=== PATIENT | female | born 1980 | race Caucasian/White ===

== ENCOUNTER 2019-02-03 20:01 | Emergency (ER) | payer SELFPAY ==
[2019-02-03 20:01] VITALS: BP 126/69; PULSE 84; RESP 15; TEMP 36.3; BMI 30.1
--- NOTE | 2019-02-03 22:21 | ED.VIS.GEN ---
History of Present Illness Chief Complaint: Dental Informant: Patient Onset: Today Context: Gradual Onset Timing: Continuous Quality: ache Location: left mandiublar Current Severity: Moderate Maximum Severity: Severe Worsened by: palpation, chewing Relieved by: spontaneously rupturing and draining some foul-tasting discharge into mouth Associated Symptoms: no fevers/systemic sx Narrative: Patient states 10 days ago this tooth swelled and was sore like this but spontaneously improved. Got worse today, and while at work felt some pus in her mouth after something popped in the area of the swelling, her boss wanted her to have it evaluated [facility]. Past Medical History - Allergies and Home Meds Allergies/Adverse Reactions: Allergies amoxicillin [From Augmentin] Adverse Reaction (Verified 02/03/19 20:05) Vomiting clavulanic acid [From Augmentin] Adverse Reaction (Verified 02/03/19 20:05) Vomiting ANTIBIOTIC Adverse Reaction (Uncoded 09/04/17 18:02) Vomiting UNKNOWN NAME OF ANTIBIOTIC. IT IS A STRONG ONE Primary Care Physician: Care Physician,No Primary [Primary Care Provider] - Smoking Status: Current every day smoker Review of Systems General: Denies: Chills, Fever ENT: Reports: - - dental pain/facial swelling. Denies: Rhinorrhea, Sore throat Physical Exam Vital Signs/Narrative: Vital Signs Temp Pulse Resp BP 02/03/19 20:01 97.4 F L 84 15 126/69 H Inital Vital Signs reviewed: Yes General: Well nourished, Well developed, No Acute Distress Head: Normocephalic, Atraumatic Eyes: Perrl, EOMI ENT: Moist mucous membranes, No rhinorrhea, - - Focal dental tenderness tooth #20. It is obviously decayed. There is no active discharge. The gingiva is normal and not bleeding or hypertrophy. There is a very tender area of swelling just lateral to this in the soft tissues of the mandible which is evident externally, there is no fluctuance.. Negative for: Sinus tenderness Neck: Supple, Nontender, No lymphadenopathy Skin: Normal color, No rash, No Trauma Neurological: Alert, Oriented x3, Cranial nerves II-XII grossly intact, Normal Strength, Normal Sensation, Normal Gait Psychological: Normal affect, Normal Mood Diagnostic/Tx/Re-eval - Medical Decision Making Consistent with an early dental abscess. Will be placed on clindamycin, and Naprosyn. She wants first doses here, does not want any narcotics I think that is reasonable, needs dental follow-up. ED Disposition - Plan for ED Patient: Disposition: Home or Assisted Living Diagnosis: Dental abscess, Dental caries Instructions: Dental Abscess Prescriptions: Naproxen [Naprosyn] 500 mg PO BID PRN #20 tab Clindamycin [Cleocin] 300 mg PO 4X/DAY #80 cap Referrals: Care Physician,No Primary [Primary Care Provider] - Dentist,Your [STAFF PHYSICIAN] - As soon as possible (see attached list)
[2019-02-03] MEDS: Clindamycin HCl 150 MG Capsule 300 MG PO (22:28)
[2019-02-03] MEDS: Naproxen 500 MG Tablet PO (22:28)
[2019-02-03 22:29] VITALS: TEMP -8.8; TEMP 16
== END 2019-02-03 22:33 | disposition home or self-care (01) ==
PROVIDERS: Emergency Provider Emergency Medicine
DX: K04.7 Periapical abscess without sinus (principal); K02.9 Dental caries, unspecified; F17.200 Nicotine dependence, unspecified, uncomplicated
CPT/HCPCS: 99283

== ENCOUNTER 2020-04-10 14:59 | Emergency (ER) | payer MEDICAID, SELFPAY ==
[2020-04-10 15:00] VITALS: BP 130/83; PULSE 74; RESP 18; TEMP 36.7; O2SAT 100; BMI 28.2
--- NOTE | 2020-04-10 15:41 | ED.VIS.FLU ---
History of Present Illness Chief Complaint: Asthma Informant: Patient Narrative: Patient presenting for evaluation secondary to an asthma exacerbation. Patient has a underlying history of mild intermittent asthma, typically uses a MDI inhaler. Over the course of the last couple of days she states that she has had increased use of her MDI inhaler, and increased wheezes. She does report that she has cough. This is minimally productive of mucus in the morning. Patient reports that she has some rhinitis associated with the weather. She denies any fevers. She denies any chest pain. No nausea vomiting or diarrhea associated with this. No sick contacts. Patient reports that she did a [employer] visit this morning, and they told her that she needed to come to the emergency department. Past Medical History - Allergies and Home Meds Allergies/Adverse Reactions: Allergies amoxicillin [From Augmentin] Adverse Reaction (Verified 04/10/20 15:02) Vomiting clavulanic acid [From Augmentin] Adverse Reaction (Verified 04/10/20 15:02) Vomiting ANTIBIOTIC Adverse Reaction (Uncoded 04/10/20 15:02) Vomiting UNKNOWN NAME OF ANTIBIOTIC. IT IS A STRONG ONE Primary Care Physician: Care Physician,No Primary [Primary Care Provider] - Prior records reviewed: Yes Past Medical History: - - Asthma Smoking Status: Current every day smoker Alcohol: None Drugs: None Review of Systems All systems negative except as indicated General: Denies: Chills, Fever, Sweats Cardiovascular: Denies: Chest pain, Palpitations Respiratory: Reports: Dyspnea, Cough Gastrointestinal: Denies: Abdominal pain, Nausea, Vomiting, Diarrhea, Melena, Hematochezia Genitourinary: Denies: Dysuria, Hematuria, Frequency Skin: Denies: Rash Neurological: Denies: Headache, Weakness, Numbness Physical Exam Vital Signs/Narrative: Vital Signs Temp Pulse Resp BP Pulse Ox 04/10/20 15:00 98.1 F 74 18 130/83 H 100 Inital Vital Signs reviewed: Yes General: Well nourished, Well developed Head: Normocephalic, Atraumatic Eyes: Perrl, EOMI Neck: Supple, Nontender Cardiovascular: Regular rate, Regular rhythm, No murmurs Abdomen: Soft, Nontender, Nondistended, Normal bowel sounds Back: Nontender, Normal Inspection Extremities: Nontender, No edema Skin: Normal color, No rash Neurological: Alert, Oriented x3, Cranial nerves II-XII grossly intact, Normal Strength, Normal Sensation Psychological: Normal affect Diagnostic/Tx/Re-eval - Medical Decision Making Patient presenting secondary to complaints of wheezing. On physical exam she actually was not having any abnormal lung sounds, is oxygenating normally. Patient likely is suffering from a mild asthma exacerbation secondary to the extreme heat currently. I will place the patient on a prednisone burst. She reports that she has enough of her inhalers, she does not require refill. Patient was discharged in stable condition. ED Disposition - Plan for ED Patient: Disposition: Home or Assisted Living Diagnosis: Asthma exacerbation Instructions: ED REACTIVE AIRWAY DISEASE Adult Prescriptions: Prednisone [Deltasone] 40 mg PO DAILY #10 tab Prescription Printed Referrals: Moustapha Infante MD [STAFF PHYSICIAN] - 1 Week if not improving
[2020-04-10 15:54] VITALS: RESP 18
== END 2020-04-10 15:54 | disposition home or self-care (01) ==
PROVIDERS: Emergency Provider Emergency Medicine
DX: J45.20 Mild intermittent asthma, uncomplicated (principal); F17.200 Nicotine dependence, unspecified, uncomplicated
CPT/HCPCS: 99282

== ENCOUNTER 2020-05-11 17:42 | Emergency (ER) | payer MEDICAID, SELFPAY ==
[2020-05-11 17:43] VITALS: BP 135/84; PULSE 82; RESP 15; TEMP 37.2; O2SAT 96; BMI 29.5
--- NOTE | 2020-05-11 17:57 | ED.VISSUMM ---
- ER Visit Summary Date of Service: 05/11/20 Chief Complaint: [Dental pain] History of Present Illness: The patient is a 39 F [presents to the emergency department with complaint of dental pain that started yesterday. Patient describes swelling that began this morning to the left lower jaw. She denies any fever. She denies any trauma to her teeth. Patient states that she does have a broken and carried tooth. Patient felt like she needed an antibiotic. Patient states that she will try to see a dentist in [facility].] Physical Examination: HEENT-PERRLA, EOMI. Cranial nerves II through XII grossly intact. TMs clear. Mucous membranes moist. No adenopathy. Dentition-patient has a broken and carried left lower premolar that is tender to palpation with gingival erythema and soft tissue swelling noted. There is no fluctuance or discrete abscess noted. No facial erythema or cellulitis noted. Cardiovascular-regular rate and rhythm without murmur or ectopy Lungs-clear to auscultation, chest wall stable without crepitus or subcu emphysema Abdomen-normoactive bowel sounds, soft, nontender, no rebound or rigidity, no peritoneal signs. Extremities-intact ?4, normal range of motion, normal pulses, atraumatic [] Test Results: [None indicated] Emergency Department Course and Treatment: She was given clindamycin 300 mg p.o. I do not feel that there is any indication for incision and drainage as I suspect she just has more inflammation at this time given that the swelling just started today. [] Treatment Plan: [Chin will be referred to dentist for follow-up. Patient will be started on clindamycin and given a few Roark for pain.] Disposition: [Discharged home in stable condition] Impression: [Dental pain secondary to dental caries Early dental abscess] This note was generated with [employer] dictation software. It may contain incorrect words, spelling, and punctuation that were not noted in review of the chart prior to signing ED Disposition - Plan for ED Patient: Referrals: Care Physician,No Primary [Primary Care Provider] -
--- NOTE | 2020-05-11 17:59 | ED.DEP ---
ED Disposition - Plan for ED Patient: Instructions: ED Tooth Pain, ED ABSCESS DENTAL Prescriptions: Clindamycin HCl [Cleocin] 300 mg PO Q6H #40 cap Prescription Printed Hydrocodone Bitart/Apap 5-325 [[place] 5MG-325MG] 1 tab PO Q4H PRN PRN 2 Days #10 tab PRN Reason: Pain Prescription Printed Referrals: Care Physician,No Primary [Primary Care Provider] - Additional Instructions: see a dentist
[2020-05-11] MEDS: Clindamycin HCl 150 MG Capsule 300 MG PO (18:06)
== END 2020-05-11 18:13 | disposition home or self-care (01) ==
LOC: ED 18:04
PROVIDERS: Emergency Provider Emergency Medicine
DX: K04.7 Periapical abscess without sinus (principal); K02.9 Dental caries, unspecified; J45.909 Unspecified asthma, uncomplicated; Z72.0 Tobacco use
CPT/HCPCS: 99283

== ENCOUNTER → 2020-07-10 18:00 | Outpatient (CLI) | payer OTHER, MEDICAID, SELFPAY | PROVIDERS: PCP Family Medicine; Referring Provider Registered Nurse; Visit Provider Registered Nurse | DX: Z20.828 Contact with and (suspected) exposure to other viral communicable diseases (principal) | CPT/HCPCS: 87635; C9803; U0003 ==

== ENCOUNTER 2020-07-15 07:13 | Emergency (ER) | payer OTHER, MEDICAID, SELFPAY ==
[2020-07-15 07:14] VITALS: BP 149/94; PULSE 89; RESP 24; TEMP 36.4; O2SAT 100; BMI 28.2
[2020-07-15 07:22] VITALS: O2SAT 100
--- NOTE | 2020-07-15 07:31 | RAD_ITS ---
STUDY: X-RAY CHEST REASON FOR EXAM: Female, 40 years old. SOB, COUGH X 1 WEEK, negative COVID test , h/o asthma and bronchitis TECHNIQUE: Single AP portable view of the chest. COMPARISON: Comparison is made with prior study dated 09/04/2017. FINDINGS: The lungs are clear and expanded. There is no demonstrated pleural abnormality. Normal size heart. Normal mediastinum and chidi. Normal visualized pulmonary arteries. Normal visualized aortic arch and descending thoracic aorta. Normal visualized thoracic spine. Normal visualized ribs, clavicles, and shoulders. There is no demonstrated abnormality of the visualized soft tissue structures of the upper abdomen. RAD/Chest 1 View (Portable) IMPRESSION: Normal x-ray examination of the chest. Electronically Signed: Franki Parkinson, at 8:33 EDT , Service support ,
--- NOTE | 2020-07-15 07:32 | ED.VIS.DYS ---
History of Present Illness Chief Complaint: Shortness of Breath Informant: Patient Onset: Weeks - 1 Activity at onset: - - gradual Timing: Waxes and wanes Quality: Wheezing Current Severity: Moderate Maximum Severity: Severe Worsened by: Coughing, Exertion Relieved by: Rest. Not Relieved By: Albuterol - tried rescue inhaler this AM Associated Symptoms: Cough, Fever - low grade last week, Rhinorrhea. Negative for: Bloody Sputum, Clear sputum, Sore throat, Sweats Chest Pain: None Narrative: Patient with a history of asthma, feels like it has been flared up in the last week since she has had an upper respiratory infection, with nonproductive cough, bronchospasm, rhinorrhea, congestion. She admits to having some headaches and myalgias earlier in the illness, not so much now. She was having asthma symptoms with dyspnea at the beginning of the illness, she had a COVID-19 test that returned negative. 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 She states now that she is here to the hospital she is improved somewhat although the albuterol inhaler did not seem to help at the time she used it. She denies any other new symptoms. - Past Medical History (1) Asthma Status: Chronic Past Medical History - Allergies and Home Meds Allergies/Adverse Reactions: Allergies amoxicillin [From Augmentin] Adverse Reaction (Verified 07/15/20 07:13) Vomiting clavulanic acid [From Augmentin] Adverse Reaction (Verified 07/15/20 07:13) Vomiting Primary Care Physician: Ajit Nayak MD [Primary Care Provider] - Smoking Status: Current every day smoker Review of Systems General: Denies: Chills, Fever, Sweats Eyes: Denies: Visual changes - bilaterally, Diplopia ENT: Reports: Rhinorrhea. Denies: Bilateral ear pain, Sore throat Cardiovascular: Denies: Chest pain, Palpitations Respiratory: Reports: Dyspnea, Cough, Dyspnea on exertion. Denies: Sputum, Orthopnea Gastrointestinal: Reports: Vomiting - posttussive only, Diarrhea. Denies: Abdominal pain, Nausea, Melena, Hematochezia Genitourinary: Denies: Dysuria, Hematuria, Frequency Musculoskeletal: Reports: Myalgias - resolved. Denies: Back pain, Swelling, Extremity Pain Skin: Denies: Rash, Wounds Neurological: Denies: Headache, Weakness, Numbness Physical Exam Vital Signs/Narrative: Vital Signs Temp Pulse Resp BP Pulse Ox 07/15/20 07:14 97.5 F L 89 24 H 149/94 H 100 Inital Vital Signs reviewed: Yes General: Well nourished, Well developed, No Acute Distress - speaking in full sentences Head: Normocephalic, Atraumatic Eyes: Perrl, EOMI ENT: Moist mucous membranes, No rhinorrhea Neck: Supple, Nontender, No lymphadenopathy Cardiovascular: Regular rate, Regular rhythm, No murmurs. Negative for: Tachycardia Respiratory: No distress, Chest nontender, Wheezing. Negative for: Rales, Rhonchi Abdomen: Soft, Nontender, Nondistended, Normal bowel sounds Back: Nontender, Normal Inspection Extremities: Nontender, No edema. Negative for: Calf Tenderness Skin: Normal color, No rash, No Trauma Neurological: Alert, Oriented x3, Cranial nerves II-XII grossly intact, Normal Strength, Normal Sensation Psychological: Normal affect, Normal Mood Diagnostic/Tx/Re-eval Chest X-Ray - ED: 1 View, Read by ED Physician, Normal, Heart, Lungs, Mediastinum, Bony Structures, No Acute Disease Treatment - Dyspnea: Albuterol, Atrovent, Steroid Repeat Evaluation: Improved - Medical Decision Making Patient improved after an aerosol. Treated with steroids, x-ray is unremarkable showing no pneumonia, and that her illness is consistent with a viral syndrome. I do not think she needs another COVID-19 test at this time. No antibiotics indicated at this time. Will prescribe her prednisone and offer a work note for the day. ED Disposition - Plan for ED Patient: Disposition: Home or Assisted Living Diagnosis: Acute asthmatic bronchitis Instructions: ED Bronchitis Asthmatic Prescriptions: Prednisone [Deltasone] 40 mg PO DAILY #10 tab Transmission Status: Pending to [id number] [facility] Referrals: Ajit Nayak MD [Primary Care Provider] - 3-5 Days if not improving
[2020-07-15] MEDS: predniSONE 20 MG Tablet 40 MG PO (07:37)
[2020-07-15 07:59] VITALS: PULSE 72; RESP 20
[2020-07-15] MEDS: Ipratropium/Albuterol Sulfate 3 ML AMPUL.NEB INHALATION (07:59)
[2020-07-15 09:47] VITALS: RESP 18; O2SAT 98
== END 2020-07-15 09:47 | disposition home or self-care (01) ==
PROVIDERS: Emergency Provider Emergency Medicine; PCP Family Medicine
DX: J45.901 Unspecified asthma with (acute) exacerbation (principal); F17.200 Nicotine dependence, unspecified, uncomplicated
CPT/HCPCS: 71045; 94640; 99281

== ENCOUNTER 2021-03-14 13:43 | Emergency (ER) | payer MEDICAID, SELFPAY ==
[2021-03-14 13:44] VITALS: BP 128/77; PULSE 63; RESP 16; TEMP 36.5; O2SAT 99; BMI 28.6
--- NOTE | 2021-03-14 14:00 | EX.ED.GENINJ ---
HPI History of Present Illness Chief Complaint: Laceration Informant: patient Narrative Narrative: Patient is a 40-year-old previously healthy female who presents to the emergency department for laceration to dorsal right hand. It is over her fifth knuckle. She states that she went to clean a glass whenever it broke. Bleeding has been controlled prior to arrival in the ED. She is not a blood thinning medications. No loss of sensation in the finger or weakness. She denies any other injury. She believes her last tetanus shot was 6 or 7 years ago. She denies any other injury. [facility] Medical History (Updated 03/14/21 @ 14:[address] Paddy Barone DO) Asthma Home Medications albuterol sulfate 2 puff INHALATION Q4H PRN PRN 04/10/20 [History Last Taken Unknown] mometasone-formoterol 2 puff IH BID 05/11/20 [History Last Taken Unknown] prednisone 40 mg PO DAILY #10 tab 07/15/20 [Rx Last Taken Unknown] Allergy/AdvReac Type Severity Reaction Status Date / Time amoxicillin [From Augmentin] AdvReac Vomiting Verified 03/14/21 13:43 clavulanic acid AdvReac Vomiting Verified 03/14/21 13:43 [From Augmentin] Social History Smoking Status: Current every day smoker tobacco type: cigarettes ROS ROS ED Constitutional Constitutional ED: Denies chills or fever(s) Cardiovascular Cardiovascular: Denies chest pain or palpitations Respiratory/Chest Respiratory/Chest: Denies cough, dyspnea or dyspnea on exertion Gastrointestinal Gastrointestinal: Denies abdominal pain, nausea or vomiting Musculoskeletal Musculoskeletal: Denies back pain or neck pain Integumentary Reports other Details: Laceration Neurologic Neurologic: Denies weakness EXAM Physical Exam Const Vital Signs: 03/14/21 13:44 03/14/21 14:50 Temperature 97.7 F L Temperature Source Temporal Pulse Rate 63 75 Respiratory Rate 16 16 Blood Pressure 128/77 H 108/69 Blood Pressure Mean 94 Pulse Ox 99 98 Oxygen Delivery Method Room Air Positive well nourished and well developed General Appearance ED: well developed and NAD HEENT Reports normocephalic, head/scalp atraumatic and moist mucous membranes Eyes PERRL and EOMs intact bilaterally Neck supple Resp normal respiratory effort and clear to auscultation bilaterally Auscultation: Negative for rales, rhonchi or wheezes Cardio regular rate, regular rhythm and no murmurs Extremity normal to inspection 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 Full range of motion. Brisk capillary refill. General Extremety ED: Negative for edema or tenderness General Extremity: Negative for edema Neuro no sensory deficits noted Sensorium / Orientation: alert Motor Exam: strength 5/5 throughout Psych mental status grossly normal Skin Skin Narrative: 1.2 cm linear laceration over right dorsal pinky knuckle. No foreign body appreciated. No active bleeding. No underlying tendon damage. PROC Procedures Lacerations Hand: Length: 0.47 in Depth: Skin Shape: Linear Prep: Sterile Conditions and Shure-Clens Laceration repair: Lidocaine with epi Irrigated (ml): 250 Number of Sutures/Niki: 3 Suture Information: Ethilon, Simple and 5-0 Comment: Close approximation MDM MDM MDM Narrative Medical decision making narrative: Patient presents to the emergency department for laceration to right hand. She is not up-to-date on her tetanus vaccination. This will be updated here. Because the laceration is over the knuckle that will require suture repair. Patient tolerated suture repair well or well. Sutures will need to be removed in 7 to 10 days. She is to monitor for evidence of infection. Return precautions are reviewed. She understands and is agreeable this plan. Discharge Plan Triage Chief Complaint: Laceration ED Provider: Paddy Barone Dx/Rx/DC Orders Clinical Impression: Hand laceration Instructions: ED Laceration, Hand: All Closures Prescriptions: No Action albuterol sulfate 90 mcg/actuation HFA aerosol inhaler 2 puff inhalation Q4H PRN PRN (Reason: Sob &/Or Wheezing) RF: 0 mometasone-formoterol 200-5 mcg/actuation HFA aerosol inhaler 2 puff IH BID RF: 0 prednisone 20 MG tablet 40 mg PO DAILY Qty: 10 RF: 0 Primary Care Provider: Ajit Nayak Referrals: jAit Nayak MD [Primary Care Provider] - 7 Days for suture removal Disposition Disposition: Home, self care Discharge Date/Time: 03/14/21 14:50
[2021-03-14] MEDS: Diphth,Pertuss(Acell),Tet Vac 0.5 ML Vial IM (14:12)
[2021-03-14] MEDS: Lidocaine 1% /Epi 1:100 (20ml) 20 ML Vial 5 ML INFILT (14:14)
[2021-03-14 14:50] VITALS: BP 108/69; PULSE 75; RESP 16; O2SAT 98
== END 2021-03-14 14:50 | disposition home or self-care (01) ==
LOC: ED 14:14
PROVIDERS: Emergency Provider Emergency Medicine; PCP Family Medicine
DX: S61.411A Laceration without foreign body of right hand, initial encounter (principal); F17.210 Nicotine dependence, cigarettes, uncomplicated; J45.909 Unspecified asthma, uncomplicated; Z79.51 Long term (current) use of inhaled steroids; W25.XXXA Contact with sharp glass, initial encounter
CPT/HCPCS: 12001; 90715; 96372; 99282

== ENCOUNTER 2021-09-19 15:57 | Emergency (ER) | payer MEDICAID, SELFPAY ==
[2021-09-19 15:58] VITALS: BP 133/77; PULSE 76; RESP 16; TEMP 35.6; O2SAT 98; BMI 26.6
--- NOTE | 2021-09-19 16:31 | EX.ED.VIS.UR ---
HPI HPI - URI History of Present Illness Chief Complaint: Sore Throat Detail of Chief Complaint: Sore throat with ulcerations that she noticed today Informant: patient Narrative Narrative: Patient presents to the emergency department with a sore throat. Patient states that she has bronchitis and is currently on prednisone and just finished a Z-Jose Elias which she started 5 days ago. Patient had Covid in July. She was worried about strep pharyngitis. She denies difficulty swallowing. She does have a hoarse voice. She had fever initially with the illness that started about a week ago for a couple of days but none since. ROS ROS ED Constitutional Constitutional ED: Reports systems reviewed and no addt'l complaints, except as documented; Denies body ache(s), change in weight or chills Eyes Eyes: Denies acute decrease in peripheral vision, change in vision, double vision or loss of vision ENT ENT ED: Reports none and sore throat; Denies ear pain, lip swelling, loss taste/smell, neck pain or otalgia Cardiovascular Cardiovascular: Reports none; Denies abdominal pain, chest pain with activity, leg edema, lightheadedness, palpitations, rapid heart rate or syncope Respiratory/Chest Respiratory/Chest: Reports none; Denies change in mental status, dry cough, dyspnea, hemoptysis, shortness of breath at rest or shortness of breath with exertion Gastrointestinal Gastrointestinal: Reports none; Denies abdominal pain, change in stool character, diarrhea, hematemesis, hematochezia, melena, rectal bleeding or vomiting Genitourinary Genitourinary ED: Reports none; Denies abdominal discomfort, anuria, dysuria, genital pain or polyuria Musculoskeletal Musculoskeletal: Reports none; Denies arthralgias, back pain, difficulty walking, extremity pain, muscle weakness or myalgias Integumentary Reports none; Denies abscess or rash Neurologic Neurologic: Reports none; Denies abnormal gait, confusion, focal weakness, frequent falls, headache(s), loss of vision, numbness, paresthesias, radicular pain, vertigo or weakness Psychiatric Psychiatric: Reports systems reviewed and no addt'l complaints, except as documented and none; Denies behavioral changes, confusion, difficulty concentrating, hallucinations, suicidal ideation, tactile hallucinations or visual hallucinations Endocrine Endocrinology: Denies none, cold intolerance, excessive sweating, fatigue or heat intolerance Hematologic/Lymphatic Hematologic/Lymphatic: Reports none; Denies anemia, easy bleeding or easy bruising Allergic/Immunologic Allergic/Immunologic ED: Denies as per HPI, none, lip swelling, mouth swelling, throat swelling, tongue swelling or hives PFSH PFSH Medical History (Updated 09/19/21 @ 17:[address] Nadja Ramires DO) Asthma Home Medications albuterol sulfate 2 puff INHALATION Q4H PRN PRN 04/10/20 [History Last Taken Unknown] mometasone-formoterol 2 puff IH BID 05/11/20 [History Last Taken Unknown] prednisone 40 mg PO DAILY #10 tab 07/15/20 [Rx Last Taken Unknown] Allergy/AdvReac Type Severity Reaction Status Date / Time amoxicillin [From Augmentin] AdvReac Vomiting Verified 09/19/21 16:00 clavulanic acid AdvReac Vomiting Verified 09/19/21 16:00 [From Augmentin] Social History Smoking Status: Current every day smoker tobacco type: cigarettes EXAM Physical Exam Const Vital Signs: 09/19/21 15:58 Temperature 96.0 F L Temperature Source Temporal Pulse Rate 76 Respiratory Rate 16 Blood Pressure 133/77 H Blood Pressure Mean 95 Pulse Ox 98 Oxygen Delivery Method Room Air Positive well nourished and well developed General Appearance ED: well developed and NAD HEENT Reports TM's clear and moist mucous membranes HEENT Narrative: Mild pharyngeal erythema with some small pinpoint vesicles noted to the oropharynx. Uvula midline. No trismus. No tonsillar exudates. normocephalic and atraumatic; Negative for trauma or tenderness Tympanic Membrane ED: Yes TM's clear Eyes PERRL and EOMs intact bilaterally General Eye ED: Negative for pale conjunctiva or scleral icterus Neck no lymphadenopathy, supple and no JVD General: Negative for tenderness Chest Wall inspection of chest normal and palpation of chest normal Chest: Negative for tenderness Resp normal respiratory effort and clear to auscultation bilaterally Effort and Inspection: Negative for respiratory distress or pain with movement Auscultation: Negative for rhonchi, wheezes or diminished lung sounds Cardio regular rate, regular rhythm, S1 normal heart sound, S2 normal heart sound and no murmurs Peripheral Pulses: pulses 2+ throughout GI normal to inspection, nondistended, normoactive bowel sounds, soft to palpation, non-tender, non-distended and no masses Back/Spine no CVA tenderness and no thoracic nor lumbar tenderness Extremity normal to inspection General Extremety ED: Negative for edema General Extremity: Negative for edema Neuro oriented x3, CN's II-XII intact bilaterally, no sensory deficits noted and gait normal Sensorium / Orientation: awake, alert, oriented to person, oriented to place and oriented to time Motor Exam: strength 5/5 throughout and strength abnormal Psych mental status grossly normal Skin no rashes or lesions noted and no wounds MDM MDM MDM Narrative Medical decision making narrative: Rapid strep screen was negative. Suspect patient likely has a viral pharyngitis. I advised patient to use salt water gargles and use ibuprofen or Tylenol for discomfort. She is to follow-up with her primary care physician in 3 to 5 days. Lab Data Attestation: I reviewed the patient's lab results. Discharge Plan Triage Chief Complaint: Sore Throat ED Provider: Nadja Ramires Dx/Rx/DC Orders Clinical Impression: Acute viral pharyngitis Instructions: ED Pharyngitis, Viral Prescriptions: No Action albuterol sulfate 90 mcg/actuation HFA aerosol inhaler 2 puff inhalation Q4H PRN PRN (Reason: Sob &/Or Wheezing) RF: 0 mometasone-formoterol 200-5 mcg/actuation HFA aerosol inhaler 2 puff IH BID RF: 0 prednisone 20 MG tablet 40 mg PO DAILY Qty: 10 RF: 0 Primary Care Provider: Ajit Nayak Referrals: Ajit Nayak MD [Primary Care Provider] - 3-5 Days Disposition Disposition: Home, Self Care
== END 2021-09-19 17:25 | disposition home or self-care (01) ==
PROVIDERS: Emergency Provider Emergency Medicine; PCP Family Medicine
DX: J02.8 Acute pharyngitis due to other specified organisms (principal); J40 Bronchitis, not specified as acute or chronic; Z79.52 Long term (current) use of systemic steroids; F17.210 Nicotine dependence, cigarettes, uncomplicated; J45.909 Unspecified asthma, uncomplicated; B97.89 Other viral agents as the cause of diseases classified elsewhere
CPT/HCPCS: 87880; 99282

== ENCOUNTER 2022-05-30 00:23 | Emergency (ER) | payer MEDICAID, SELFPAY ==
[2022-05-30 00:24] VITALS: BP 153/77; PULSE 88; RESP 18; TEMP 35.7; O2SAT 99; BMI 27.3
--- NOTE | 2022-05-30 00:49 | EX.ED.GENINJ ---
HPI History of Present Illness Chief Complaint: Head Injury Informant: patient Onset/Context/Timing Onset: Today Mechanism/Context: Blunt Injury and Work Related Quality of Pain: Aching Location: head, parieto-occiptial on left Current Severity: Moderate Maximum Severity: Moderate Worsened by: nothing Relieved by: naproxen earlier Associated Symptoms Associated Symptoms: Negative for Parasthesias, Weakness, Loss of function, Inability to ambulate, Loss of consciousness or Amnesia Narrative Narrative: Patient states she was at work, she was bending over getting something out of a cabinet and the printer that was on top of the cabinet, 2 or 3 feet off of the floor, fell off of it and struck her on the back of the head. She has had gradual onset of headache, some photophobia, phonophobia, pain mostly in the left lateral neck, and the right low back. No focal neurologic symptoms. No vomiting or confusion. [facility] Medical History Asthma Home Medications albuterol sulfate 90 mcg/actuation aerosol inhaler 2 puff inhalation Q4H PRN PRN Sob &/Or Wheezing 04/10/20 [History Last Taken Unknown] mometasone-formoterol HFA 200 mcg-5 mcg/actuation aerosol inhaler 2 puff IH BID 05/11/20 [History Last Taken Unknown] prednisone 20 mg tablet 40 mg PO DAILY #10 tabs 07/15/20 [Rx Last Taken Unknown] ondansetron 4 mg disintegrating tablet 8 mg PO Q8H PRN PRN Nausea #14 tabs 05/30/22 [Rx Last Taken Unknown] Allergy/AdvReac Type Severity Reaction Status Date / Time amoxicillin [From Augmentin] AdvReac Vomiting Verified 05/30/22 00:29 clavulanic acid AdvReac Vomiting Verified 05/30/22 00:29 [From Augmentin] Social History Smoking Status: Current every day smoker tobacco type: cigarettes ROS ROS ED Constitutional Constitutional ED: Denies chills or fever(s) Eyes Eyes: Reports photophobia; Denies change in vision or diplopia ENT ENT ED: Denies ear pain, epistaxis, facial pain or rhinorrhea Cardiovascular Cardiovascular: Denies chest pain or palpitations Respiratory/Chest Respiratory/Chest: Denies cough or dyspnea Gastrointestinal Gastrointestinal: Denies abdominal pain, diarrhea, melena, nausea or vomiting Genitourinary Genitourinary ED: Denies dysuria or hematuria Musculoskeletal Musculoskeletal: Reports back pain and neck pain; Denies extremity pain Integumentary Denies abscess, Abrasions, laceration or rash Neurologic Neurologic: Reports headache(s); Denies confusion, paresthesias or weakness EXAM Physical Exam Const Vital Signs: 05/30/22 00:24 05/30/22 00:27 Temperature 96.2 F L Temperature Source Temporal Pulse Rate 88 Respiratory Rate 18 Blood Pressure 153/77 H Blood Pressure Mean 102 Pulse Ox 99 Oxygen Delivery Method Room Air Room Air Positive well nourished and well developed General Appearance ED: well developed and NAD HEENT Reports TM's clear and nasal mucous membranes and turbinates normal HEENT Narrative: Tender contusion left high parietal/occipital scalp without crepitance, depression, evidence of a skull fracture, ecchymosis or purpura, or laceration. No boggy hematoma. Face and Sinus: Negative for facial tenderness Tympanic Membrane ED: Yes TM's clear Eyes PERRL and EOMs intact bilaterally Visual Acuity: other Other Details: no entrapment or pain with extraocular movements Neck full ROM and supple Neck Narrative: Tender bilateral lower cervical paraspinal musculature no midline tenderness. Full range of motion without significant difficulty. General: tenderness Chest Wall inspection of chest normal and palpation of chest normal Chest: symmetrical chest wall rise Back/Spine normal ROM Back/Spine Narrative: Mild tenderness in the right lumbosacral paraspinal musculature Cervical Spine: Negative for cervical spine tenderness Thoracic Spine / Upper Back: Negative for thoracic spinal tenderness Lumbar Spine / Lower Back: Negative for lumbar spinal tenderness Extremity normal to inspection and full ROM General Extremety ED: Negative for tenderness Neuro oriented x3, CN's II-XII intact bilaterally, moves all extremities, no focal motor deficits and no sensory deficits noted [place] Coma Scale: document GCS findings Spontaneous Obeys Commands Oriented 15 Sensorium / Orientation: awake and alert Psych mental status grossly normal and thought process normal Skin no wounds Lesions: no lesions Rashes: no rashes MDM MDM MDM Narrative Medical decision making narrative: Under the [place] head trauma CT rule the patient qualifies for observation for symptoms and does not require imaging. She is reassured. She was given Reglan here which may help the headache and nausea, prescription for Zofran to use as needed, continue with NSAIDs, she was given a dose of ibuprofen here tonight as well since the Naprosyn she took earlier has worn off. It was helping. Given work note for tomorrow and close outpatient follow-up advised if her symptoms continue. I would not be surprised if the majority of the symptoms are due to the neck strain rather than an actual concussion, but as I discussed with the patient not able to rule out 1 versus the other. Discharge Plan Triage Chief Complaint: Head Injury ED Provider: Miguel Angel Cruz Dx/Rx/DC Orders Clinical Impression: Closed head injury without loss of consciousness, Cervical myofascial strain, Acute lumbosacral myofascial strain Instructions: After a Concussion Prescriptions: New ondansetron [ondansetron] 4 mg tablet,disintegrating 8 mg PO Q8H PRN PRN (Reason: Nausea) Qty: 14 0RF No Action albuterol sulfate 90 mcg/actuation HFA aerosol inhaler 2 puff inhalation Q4H PRN PRN (Reason: Sob &/Or Wheezing) Label Comments: inhale 2 puffs by mouth and INTO THE LUNGS every 4 hours if needed mometasone-formoterol 200-5 mcg/actuation HFA aerosol inhaler 2 puff IH BID Label Comments: inhale 2 puffs by mouth and INTO THE LUNGS twice a day prednisone 20 MG tablet 40 mg PO DAILY Qty: 10 0RF Rx Instructions: With food Stand Alone Forms: ED Work / School Excuse, Work Status Form Primary Care Provider: Ajit Nayak Referrals: [facility]] - 1 Week if not improving Ajit Nayak MD [Primary Care Provider] - Disposition Disposition: Home, Self Care
[2022-05-30] MEDS: Ibuprofen 600 MG Tablet PO (00:53)
[2022-05-30 00:55] VITALS: BP 127/64; PULSE 74; RESP 15; O2SAT 98
[2022-05-30] MEDS: Metoclopramide 10 MG Tablet PO (00:58)
== END 2022-05-30 00:55 | disposition home or self-care (01) ==
LOC: ED 01:04
PROVIDERS: Emergency Provider Emergency Medicine; PCP Family Medicine; Visit Provider Emergency Medicine
DX: S39.012A Strain of muscle, fascia and tendon of lower back, initial encounter (principal); F17.210 Nicotine dependence, cigarettes, uncomplicated; S16.1XXA Strain of muscle, fascia and tendon at neck level, initial encounter; W22.8XXA Striking against or struck by other objects, initial encounter; J45.909 Unspecified asthma, uncomplicated; S00.03XA Contusion of scalp, initial encounter
CPT/HCPCS: 99283

== ENCOUNTER 2022-09-22 14:57 | Emergency (ER) | payer MEDICAID, SELFPAY ==
[2022-09-22 14:58] VITALS: BP 139/72; PULSE 75; RESP 15; TEMP 36.4; O2SAT 99; BMI 28.0
--- NOTE | 2022-09-22 15:18 | EX.ED.UPPERE ---
HPI History of Present Illness Chief Complaint: Laceration Narrative Narrative: 42-year-old female past medical history of asthma presents with injury to her left fifth finger pad. She states that she was at work at noon, over 3 hours ago, and was cutting bread with a knife. She sustained a small laceration to the finger pad of her left fifth digit. She has been applying pressure, but states that she is continuing to having bleeding from the area. She is elevated her left arm also. She denies taking any blood thinners except for steroids for bronchitis. She denies other injuries. She believes her tetanus immunization is still current. She is right-hand dominant. She presents for evaluation of the laceration and to get it to stop bleeding, but she states she does not want sutures. [facility] Medical History Asthma Home Medications albuterol sulfate 90 mcg/actuation aerosol inhaler 2 puff inhalation Q4H PRN PRN Sob &/Or Wheezing 04/10/20 [History Last Taken Unknown] mometasone-formoterol HFA 200 mcg-5 mcg/actuation aerosol inhaler 2 puff IH BID 05/11/20 [History Last Taken Unknown] prednisone 20 mg tablet 40 mg PO DAILY #10 tabs 07/15/20 [Rx Last Taken Unknown] ondansetron 4 mg disintegrating tablet 8 mg PO Q8H PRN PRN Nausea #14 tabs 05/30/22 [Rx Last Taken Unknown] Allergy/AdvReac Type Severity Reaction Status Date / Time amoxicillin [From Augmentin] AdvReac Vomiting Verified 09/22/22 14:58 clavulanic acid AdvReac Vomiting Verified 09/22/22 14:58 [From Augmentin] Social History Smoking Status: Current every day smoker tobacco type: cigarettes ROS ROS ED ROS Narrative Constitutional: No fever, no chills. HEENT: No sore throat. No neck pain. No loss of vision. No rhinorrhea. Cardiovascular: No chest pain. No palpitations. No pedal edema. Respiratory: No cough, no shortness of breath. Abdominal: No abdominal pain. No nausea. No vomiting. Genitourinary: No dysuria. No hematuria. Musculoskeletal: No myalgias. No arthralgias. Neurologic: No headaches. No dizziness. No lightheadedness. Skin: No rash. No change in color. Laceration to left fifth finger pad. Psychiatric: No depression. No anxiety. EXAM Physical Exam Narrative Exam Narrative: Afebrile. Vital signs noted. HEENT: Normocephalic. Atraumatic. PERRL, EOMI. Neck soft and supple. No point tenderness or step off. Cardiovascular: Regular rate and rhythm. No murmurs, rubs, or gallops appreciated. Respiratory: No tachypnea. Lungs clear to auscultation bilaterally. Gastrointestinal: Abdomen soft, nontender, with normoactive bowel sounds. No rebound or guarding. Neurological: Awake. Alert. Nonfocal, nonlateralizing. Skin: No rash. Normal color. No pallor. Inspection of the left fifth digit finger pad more on the lateral aspect shows a less than 1 cm laceration without active bleeding. There is no nailbed involvement. Musculoskeletal: No pedal edema. Full range of motion extremities. Const Vital Signs: 09/22/22 14:58 Temperature 97.6 F L Temperature Source Temporal Pulse Rate 75 Respiratory Rate 15 Blood Pressure 139/72 H Blood Pressure Mean 94 Pulse Ox 99 Oxygen Delivery Method Room Air MDM MDM MDM Narrative Medical decision making narrative: I discussed closure with the patient. As it is less than 1 cm, I do feel that it can heal by secondary intent. Currently there is no active bleeding. Her wound will be cleansed. I do feel that her skin could be closed with Dermabond and possibly the addition of a Steri-Strip. She is to keep the area clean and dry at least for the next few days. She was warned of the risk of infection and scarring and acknowledges an understanding. At this point in time, I feel she be discharged safely home with follow-up to her primary care provider. She states she does not want to claim [facility] for this. Disposition is discharged home in stable condition. Discharge Plan Triage Chief Complaint: Laceration ED Provider: Genaro Malave Dx/Rx/DC Orders Clinical Impression: Finger laceration, History of asthma Instructions: ED Laceration, Hand: All Closures Prescriptions: No Action albuterol sulfate 90 mcg/actuation HFA aerosol inhaler 2 puff inhalation Q4H PRN PRN (Reason: Sob &/Or Wheezing) Label Comments: inhale 2 puffs by mouth and INTO THE LUNGS every 4 hours if needed mometasone-formoterol 200-5 mcg/actuation HFA aerosol inhaler 2 puff IH BID Label Comments: inhale 2 puffs by mouth and INTO THE LUNGS twice a day prednisone 20 MG tablet 40 mg PO DAILY Qty: 10 0RF Rx Instructions: With food ondansetron [ondansetron] 4 mg tablet,disintegrating 8 mg PO Q8H PRN PRN (Reason: Nausea) Qty: 14 0RF Primary Care Provider: Ajit Nayak Referrals: Ajit Nayak MD [Primary Care Provider] - 3-5 Days if not improving Disposition Disposition: Home, Self Care
== END 2022-09-22 15:26 | disposition home or self-care (01) ==
PROVIDERS: Emergency Provider Emergency Medicine; PCP Family Medicine; Visit Provider Emergency Medicine
DX: S61.217A Laceration without foreign body of left little finger without damage to nail, initial encounter (principal); F17.210 Nicotine dependence, cigarettes, uncomplicated; W26.0XXA Contact with knife, initial encounter
CPT/HCPCS: 12001; 99282

== ENCOUNTER 2022-10-04 15:12 | Emergency (ER) | payer MEDICAID, SELFPAY ==
[2022-10-04 15:13] VITALS: BP 148/54; PULSE 78; RESP 16; TEMP 36.4; O2SAT 98; BMI 27.4
--- NOTE | 2022-10-04 16:26 | ED.VIS.DENTA ---
HPI <FLOYD Jeffers - Last Filed: 10/04/22 16:41> History of Present Illness Chief Complaint: Dental Narrative Narrative: Patient presents with pain to her right first premolar and swelling to her right lower mandible. Patient states this tooth has had an infection before and needs to be pulled. She has had a hard time following up with a dentist due to her work schedule. Patient states she does have an appointment with her dentist next week but wanted to come by and get evaluated before then. She denies fever, chills, abdominal pain, nausea, and vomiting. PFSH <FLOYD Jeffers - Last Filed: 10/04/22 16:41> PFSH Medical History Asthma Home Medications albuterol sulfate 90 mcg/actuation aerosol inhaler 2 puff inhalation Q4H PRN PRN Sob &/Or Wheezing 04/10/20 [History Last Taken Unknown] mometasone-formoterol HFA 200 mcg-5 mcg/actuation aerosol inhaler 2 puff IH BID 05/11/20 [History Last Taken Unknown] prednisone 20 mg tablet 40 mg PO DAILY #10 tabs 07/15/20 [Rx Last Taken Unknown] ondansetron 4 mg disintegrating tablet 8 mg PO Q8H PRN PRN Nausea #14 tabs 05/30/22 [Rx Last Taken Unknown] clindamycin HCl 150 mg capsule 300 mg PO 4X/DAY #80 caps 10/04/22 [Rx Last Taken Unknown] ibuprofen 800 mg tablet 800 mg PO Q8H 10 days #30 tabs 10/04/22 [Rx Last Taken Unknown] Allergy/AdvReac Type Severity Reaction Status Date / Time amoxicillin [From Augmentin] AdvReac Vomiting Verified 10/04/22 15:14 clavulanic acid AdvReac Vomiting Verified 10/04/22 15:14 [From Augmentin] Social History Smoking Status: Current every day smoker tobacco type: cigarettes ROS <FLOYD Jeffers - Last Filed: 10/04/22 16:41> ROS ED Constitutional Constitutional ED: Denies chills, fever(s) or sweats Eyes Eyes: Denies blurry vision or change in vision ENT ENT ED: Reports dental pain; Denies rhinorrhea or sore throat Cardiovascular Cardiovascular: Denies chest pain, palpitations or racing heartbeat Respiratory/Chest Respiratory/Chest: Denies cough, dyspnea or dyspnea on exertion Gastrointestinal Gastrointestinal: Denies abdominal pain, diarrhea, nausea or vomiting Genitourinary Genitourinary ED: Denies dysuria, hematuria or urinary frequency Musculoskeletal Musculoskeletal: Denies back pain, myalgias or neck pain Integumentary Denies abscess, Abrasions or rash Neurologic Neurologic: Denies headache(s), paresthesias or weakness Psychiatric Psychiatric: Denies anxiety, depression or suicidal ideation Allergic/Immunologic Allergic/Immunologic ED: Denies tongue swelling or urticaria EXAM <FLOYD Jeffers - Last Filed: 10/04/22 16:41> Physical Exam Const Vital Signs: 10/04/22 15:13 Temperature 97.6 F L Temperature Source Temporal Pulse Rate 78 Respiratory Rate 16 Blood Pressure 148/54 H Blood Pressure Mean 85 Pulse Ox 98 Oxygen Delivery Method Room Air Positive well nourished and well developed General Appearance ED: well developed and NAD HEENT HEENT Narrative: Right lower mandible soft tissue is edematous and tender to the touch. No fluctuance or signs of abscess. Right lower first premolar has obvious dental decay. Mouth ED: Yes lips normal and Yes tongue normal Mouth: lips normal and tongue normal Throat: posterior oropharynx normal Eyes PERRL and EOMs intact bilaterally Neck no lymphadenopathy and supple Chest Wall inspection of chest normal Resp normal respiratory effort and clear to auscultation bilaterally Cardio regular rate, regular rhythm and no murmurs GI non-tender, non-distended and no masses Palpation: soft Extremity normal to inspection Neuro oriented x3, CN's II-XII intact bilaterally, moves all extremities, no focal motor deficits and no sensory deficits noted Sensorium / Orientation: alert Motor Exam: strength 5/5 throughout Psych mental status grossly normal Skin no rashes or lesions noted and no wounds <Dr. Lucia De Leon MD - Last Filed: 10/04/22 18:31> Physical Exam Const Vital Signs: 10/04/22 15:13 Temperature 97.6 F L Temperature Source Temporal Pulse Rate 78 Respiratory Rate 16 Blood Pressure 148/54 H Blood Pressure Mean 85 Pulse Ox 98 Oxygen Delivery Method Room Air MDM <FLOYD Jeffers - Last Filed: 10/04/22 16:41> [facility] Narrative Medical decision making narrative: Patient presenting with pain and swelling to her right lower jaw. She has had a dental abscess to her right lower first premolar in the past. No signs of dental abscess today. She is supposed to get this tooth pulled but has not done this yet. Clindamycin worked for this issue in the past and it has been given to her here in the ED as well as a prescription for home. She requested 800 mg ibuprofen for her pain and this has been given to her today as well as a prescription for home. She will be discharged home in stable condition. She has a dental appointment next week she will be following up with. She has been given return instructions and will be discharged home in stable condition. Patient is comfortable with plan. <Dr. Lucia De Leon MD - Last Filed: 10/04/22 18:31> [facility] Treatment and Re-Evaluation Narrative: Patient seen and evaluated with [facility]. I personally interviewed and examined the patient. I was involved in all aspects of patient's orders, interpretation of results, and treatment. Patient present secondary to right lower dental pain with swelling. She states has had intermittent problems with her teeth over the past several years. She has appointment to see her dentist next week. She is had increasing pain as well as swelling along the jaw. No fever or chills. No difficulty swallowing. Patient sitting upright in bed no acute distress. Nontoxic-appearing. Head and neck examination reveals mild edema along the right mandible. No overlying skin change. Intraoral examination reveals several right anterior lateral maxillary teeth with decay at the base. Mild surrounding gum edema. Posterior pharynx exam is normal with no trismus. There is no evidence of Jon's angina. Heart is regular rate and rhythm. Lung sounds are clear. Abdomen is soft and nontender. Neuro exam is unremarkable. Patient is done with clindamycin previously. She is given clindamycin along with a prescription for ibuprofen 800. She will keep her dentist appointment for next week. Return instructions given. Discharge Plan Triage Chief Complaint: Dental ED Midlevel Provider: Britni Angeles ED Provider: Lucia De Leon Dx/Rx/DC Orders Clinical Impression: Infected dental caries Instructions: ED Dental Abscess Prescriptions: New clindamycin HCl 150 mg capsule 300 mg PO 4X/DAY Qty: 80 0RF ibuprofen 800 mg tablet 800 mg PO Q8H 10 Days Qty: 30 0RF No Action albuterol sulfate 90 mcg/actuation HFA aerosol inhaler 2 puff inhalation Q4H PRN PRN (Reason: Sob &/Or Wheezing) Label Comments: inhale 2 puffs by mouth and INTO THE LUNGS every 4 hours if needed mometasone-formoterol 200-5 mcg/actuation HFA aerosol inhaler 2 puff IH BID Label Comments: inhale 2 puffs by mouth and INTO THE LUNGS twice a day prednisone 20 MG tablet 40 mg PO DAILY Qty: 10 0RF Rx Instructions: With food ondansetron [ondansetron] 4 mg tablet,disintegrating 8 mg PO Q8H PRN PRN (Reason: Nausea) Qty: 14 0RF Primary Care Provider: Ajit Nayak Referrals: Ajit Nayak MD [Primary Care Provider] - 3-5 Days Activity Restrictions/Additional Instructions: Please follow-up with your dental appointment next week. Please return if your symptoms worsen. Disposition Disposition: Home, Self Care Discharge Date/Time: 10/04/22 16:31
[2022-10-04] MEDS: Clindamycin HCl 150 MG Capsule 450 MG PO (16:29)
[2022-10-04] MEDS: Ibuprofen 400 MG Tablet 800 MG PO (16:29)
== END 2022-10-04 16:31 | disposition home or self-care (01) ==
LOC: ED 16:27
PROVIDERS: Emergency Provider Emergency Medicine; PCP Family Medicine; Visit Provider Emergency Medicine
DX: K02.9 Dental caries, unspecified (principal); F17.210 Nicotine dependence, cigarettes, uncomplicated
CPT/HCPCS: 99283

== ENCOUNTER 2023-10-08 15:03 | Emergency (ER) | payer SELFPAY ==
[2023-10-08 15:04] VITALS: BP 123/83; PULSE 101; RESP 22; TEMP 36.3; O2SAT 100; BMI 27.1
--- NOTE | 2023-10-08 15:44 | EKG12_ITS ---
Test Reason : SOB Blood Pressure : / mmHG Vent. Rate : 057 BPM Atrial Rate : 057 BPM P-R Int : 124 ms QRS Dur : 084 ms QT Int : 396 ms P-R-T Axes : 003 051 064 degrees QTc Int : 385 ms Sinus bradycardia with sinus arrhythmia Otherwise normal ECG Confirmed by LUIS EVANS, HILDA ([id number]), publication editor ELEUTERIO BEARD ([id number]) on 10/10/2023 8:44:14 AM Referred By: Confirmed By:HILDA SMITH MD
--- NOTE | 2023-10-08 15:45 | ED.VIS.DYS ---
HPI History of Present Illness Chief Complaint: Shortness of Breath Narrative Narrative: 43-year-old female past medical history of severe asthma presents with increasing shortness of breath that she has had over the last few days. Her symptoms of URI/bronchitis began on Tuesday in the morning, approximately 4 days ago. She has had cough. She has been trying to use her aerosol treatments, last being 4 hours ago. She states she used to be on DuoNeb which would last for every 6 hours, however the pharmacies have been out of it so she is using an alternative which makes her have to use treatments every 4 hours. She had low-grade fever which has been controlled with Aleve. She presents with increasing shortness of breath and difficulty breathing. She states she is never been fully hospitalized for her asthma, and it has been a long time since she has been on steroids for her asthma. She denies any leg swelling or other symptoms. This feels similar to her asthma exacerbations. [facility] Medical History Asthma Home Medications albuterol sulfate 90 mcg/actuation aerosol inhaler 2 puff inhalation Q4H PRN PRN Sob &/Or Wheezing 04/10/20 [History Last Taken Unknown] mometasone-formoterol HFA 200 mcg-5 mcg/actuation aerosol inhaler 2 puff IH BID 05/11/20 [History Last Taken Unknown] prednisone 20 mg tablet 40 mg (2 x 20 mg) PO DAILY #10 tabs 07/15/20 [Rx Last Taken Unknown] ondansetron 4 mg disintegrating tablet 8 mg (2 x 4 mg) PO Q8H PRN PRN Nausea #14 tabs 05/30/22 [Rx Last Taken Unknown] clindamycin HCl 150 mg capsule 300 mg (2 x 150 mg) PO 4X/DAY #80 caps 10/04/22 [Rx Last Taken Unknown] ibuprofen 800 mg tablet 800 mg PO Q8H 10 days #30 tabs 10/04/22 [Rx Last Taken Unknown] ipratropium 0.5 mg-albuterol 3 mg (2.5 mg base)/3 mL nebulization soln 3 ml inhalation Q6H PRN shortness of breath or wheezing #90 mL 10/08/23 [Rx Last Taken Unknown] prednisone 20 mg tablet 40 mg (2 x 20 mg) PO DAILY #14 tabs 10/08/23 [Rx Last Taken Unknown] Allergy/AdvReac Type Severity Reaction Status Date / Time amoxicillin [From Augmentin] AdvReac Vomiting Verified 10/08/23 15:04 clavulanic acid AdvReac Vomiting Verified 10/08/23 15:04 [From Augmentin] Social History Smoking Status: Current every day smoker tobacco type: cigarettes ROS ROS ED ROS Narrative Constitutional: Positive low-grade fever, no chills. HEENT: No sore throat. No neck pain. No loss of vision. No rhinorrhea. Cardiovascular: No chest pain. No palpitations. No pedal edema. Respiratory: Positive cough, increasing shortness of breath. Abdominal: No abdominal pain. No nausea. No vomiting. Genitourinary: No dysuria. No hematuria. Musculoskeletal: No myalgias. No arthralgias. Neurologic: No headaches. No dizziness. No lightheadedness. Skin: No rash. No change in color. Psychiatric: No depression. No anxiety. EXAM Physical Exam Narrative Exam Narrative: Afebrile. Vital signs noted. HEENT: Normocephalic. Atraumatic. PERRL, EOMI. Neck soft and supple. No point tenderness or step off. Hoarse voice consistent with laryngitis. Cardiovascular: Regular rate and rhythm. No murmurs, rubs, or gallops appreciated. Respiratory: No tachypnea. Lungs clear to auscultation bilaterally. Decreased breath sounds bilateral bases. Moving a fair amount of air. Gastrointestinal: Abdomen soft, nontender, with normoactive bowel sounds. No rebound or guarding. Neurological: Awake. Alert. Nonfocal, nonlateralizing. Skin: No rash. Normal color. No pallor. Musculoskeletal: No pedal edema. Full range of motion extremities. Const Vital Signs: 10/08/23 15:04 10/08/23 15:57 10/08/23 16:01 Temperature 97.4 F L 98.7 F Temperature Source Temporal Oral Pulse Rate 101 H 64 67 Respiratory Rate 22 H 16 16 Respiratory Effort Respiratory Pattern Blood Pressure 123/83 H Blood Pressure Mean 96 Pulse Ox 100 99 Oxygen Delivery Method Room Air Room Air 10/08/23 16:01 10/08/23 16:01 10/08/23 15:56 Temperature Temperature Source Pulse Rate Respiratory Rate Respiratory Effort Short of Breath Respiratory Pattern Normal Blood Pressure Blood Pressure Mean Pulse Ox 99 98 Oxygen Delivery Method Room Air Room Air Room Air 10/08/23 17:00 Temperature Temperature Source Pulse Rate Respiratory Rate Respiratory Effort Respiratory Pattern Blood Pressure 108/80 Blood Pressure Mean 89 Pulse Ox 99 Oxygen Delivery Method MDM MDM MDM Narrative Medical decision making narrative: In the differential diagnosis is asthma exacerbation versus asthmatic bronchitis versus pneumonia versus pneumothorax. I have low suspicion for pneumothorax as she has equal breath sounds and her pulse ox is 100% on room air. She was given a nebulizer treatment of DuoNeb and loaded with steroids 60 mg orally. I do feel a chest x-ray is indicated given that she is having continued dyspnea, this will help rule out pneumothorax and pneumonia as well. EKG was obtained to help rule out ACS as a cause of her dyspnea, and it was interpreted by myself independently as sinus bradycardia at 57 bpm with a sinus arrhythmia but no evidence of acute ST changes. No STEMI. Chest x-ray in 1 view interpreted by myself independently shows no evidence of pneumothorax or pneumonia. I reviewed the radiology report which confirms my independent interpretation. I do not feel antibiotics are indicated. Upon repeat examination at approximately 1710, she is resting comfortably and feels improved. I will write her prescription for DuoNeb nebulizer treatments and for prednisone burst for the next 7 days. I feel she can be discharged safely home with follow-up. Return instructions to the emergency department were reviewed. Disposition is discharged home in stable condition. History & Record Review Discussion w/independent historian: Patient Radiography Chest X-Ray - ED: 1 View, Read by ED Physician and Read by Radiologist Diagnostic Testing: Clinical Impression(s) from Imaging Studies Chest X-Ray 10/08/23 15:48 IMPRESSION: No radiographic evidence of acute cardiopulmonary disease. Electronically Signed: Neel Egan DO at 16:20 EST Reading Location ID and State: [facility] / [place] Tel [phone], Service support , Discharge Plan Triage Chief Complaint: Shortness of Breath ED Provider: Genaro Malave Dx/Rx/DC Orders Clinical Impression: Dyspnea, Asthma Instructions: ED Asthma, Acute (Adult) Prescriptions: New prednisone 20 mg tablet 40 mg PO DAILY Qty: 14 0RF ipratropium-albuterol 0.5 mg-3 mg(2.5 mg base)/3 mL solution for nebulization 3 ml inhalation Q6H PRN (Reason: shortness of breath or wheezing) Qty: 90 0RF No Action albuterol sulfate 90 mcg/actuation HFA aerosol inhaler 2 puff inhalation Q4H PRN PRN (Reason: Sob &/Or Wheezing) Patient Comments: inhale 2 puffs by mouth and INTO THE LUNGS every 4 hours if needed mometasone-formoterol 200-5 mcg/actuation HFA aerosol inhaler 2 puff IH BID Patient Comments: inhale 2 puffs by mouth and INTO THE LUNGS twice a day prednisone 20 MG tablet 40 mg PO DAILY Qty: 10 0RF Rx Instructions: With food ondansetron [ondansetron] 4 mg tablet,disintegrating 8 mg PO Q8H PRN PRN (Reason: Nausea) Qty: 14 0RF clindamycin HCl 150 mg capsule 300 mg PO 4X/DAY Qty: 80 0RF ibuprofen 800 mg tablet 800 mg PO Q8H 10 Days Qty: 30 0RF Primary Care Provider: Ajit Nayak Referrals: Ajit Nayak MD [Primary Care Provider] - 3-5 Days if not improving Activity Restrictions/Additional Instructions: Take the prednisone burst of 40 mg x 1 week starting tomorrow. Use the DuoNeb aerosolized treatment every 6 hours as needed for shortness of breath. Return with increased shortness of breath, new or worsening symptoms. Disposition Disposition: Home, Self Care
--- NOTE | 2023-10-08 15:47 | NURSING ---
NO OLD EKGS
--- NOTE | 2023-10-08 15:48 | RAD_ITS ---
INDICATION: asthma, shortness of breath EXAMINATION/TECHNIQUE: X-RAY - XR Chest 1 View COMPARISON: July 15, 2020 FINDINGS: LINES/DEVICES: None. LUNGS: No consolidation, edema or effusion. No pneumothorax. MEDIASTINUM AND CARDIOVASCULAR STRUCTURES: Cardiac silhouette not enlarged. Central airways and mediastinal contour are unremarkable. BONES AND SOFT TISSUES: Unremarkable. RAD/Chest 1 View (Portable) IMPRESSION: No radiographic evidence of acute cardiopulmonary disease. Electronically Signed: Neel Egan DO at 16:20 EST ,
[2023-10-08 15:56] VITALS: O2SAT 98
[2023-10-08 15:57] VITALS: PULSE 64; RESP 16
[2023-10-08] MEDS: Ipratropium/Albuterol Sulfate 3 ML AMPUL.NEB INHALATION (15:57)
[2023-10-08 16:01] VITALS: PULSE 67; RESP 16; TEMP 37.1; O2SAT 100; O2SAT 99
[2023-10-08] MEDS: predniSONE 20 MG Tablet 60 MG PO (16:06)
--- OUTSIDE RECORDS SUMMARY | 2023-10-08 16:14 | XMS RPT_ITS | CCD ---
Author Name Unknown Address [id number] [place] [address] Organization [facility] Care Team Providers Care Programming Internship Name Role Phone Wali COLLAR TAILOR.Shelia HUNG Primary Care Provider HAAGEN, SHELIA Primary Care Unavailable HACODY, SHELIA Attending Unavailable HAAGEN, SHELIA Primary Care Unavailable CESAR MÉNDEZ Attending Unavailable HAAGEN, SHELIA Primary Care Unavailable COLLEEN CANO Referring Unavail able HAAGEN, SHELIA Primary Care Unavailable HAAGEN, SHELIA Primary Care Unavailable HAAGEN, SHELIA Attending Unavailable HAAGEN, SHELIA Primary Care Unavailable HAAGEN, SHELIA Attending Unavailable HAAGEN, SHELIA Primary Care Unavailable HAAGEN, SHELIA Attending Unavailable HAAGEN, SHELIA Primary Care Unavailable Allergies Allergy Classification Reported Allergen(s) Allergy Type Date of Onset Reaction(s) Facility (20 sources) Amoxicillin / Clavulanate; Translations: [AMOXICILLIN-POT CLAVULANATE] Drug Allergy 9 GI Upset [facility] (20 sources) No Latex Allergy [Other] Propensity to adverse reactions 4 [facility] Work Phone: (1 source) OTHER; Translations: [OTHER] Propensity to adverse reactions (disorder) 4 [facility] Repository Medications Current Medications Medication Drug Class(es) Dates Sig (Normalized) Sig (Original) azithromycin 250 mg oral tablet (3 sources) Macrolide Antimicrobial Start: 01-31-2023 End: 02-05-2023 azithromycin (ZITHROMAX Z-KENNY) 250 mg tablet Indications: Bronchitis Take 2 tablets day one, then, 1 tablet daily until gone. 6 tablet 0 01/31/2023 02/05/2023 Active Completed/Discontinued Medications Medication Drug Class(es) Dates Sig (Normalized) Sig (Original) albuterol 0.83 mg/ml inhalation solution (20 sources) beta2-Adrenergic Agonist Start: 01-31-2023 End: 03-02-2023 albuterol (PROVENTIL) 2.5 mg /3 mL (0.083 %) nebulizer solution Indications: Bronchitis Use 3 mL via nebulizer every 4 hours as needed for wheezing/shortness of breath. Use over 5-15minutes. 100 mL 0 01/31/2023 Active Problems Active Problems Problem Classification Problem Date Documented Date Episodic/Chronic Acute bronchitis (1 source) Acute bronchitis; Translations: [Acute bronchitis, unspecified] Episodic Asthma (20 sources) Exacerbation of asthma; Translations: [Unspecified asthma with (acute) exacerbation] Onset: 01-23-2021 01-23-2021 Chronic Cancer of cervix (2 sources) Cervical atypism; Translations: [Atypical squamous cells of undetermined significance on cytologic smear of cervix (ASC-US)] Episodic Chronic obstructive pulmonary disease and bronchiectasis (1 source) Bronchitis; Translations: [Bronchitis, not specified as acute or chronic] Episodic Immunizations and screening for infectious disease (5 sources) Patient encounter status; Translations: [Encounter for screening for infections with a predominantly sexual mode of transmission] Episodic Other circulatory disease (1 source) Respiratory symptom; Translations: [Other specified symptoms and signs involving the circulatory and respiratory systems] Episodic Other female genital disorders (1 source) Abnormal uterine bleeding; Translations: [Abnormal uterine and vaginal bleeding, unspecified] Chronic Other non-traumatic joint disorders (1 source) Pain in right knee; Translations: [Pain in joint, lower leg] Episodic Other upper respiratory infections (2 sources) Laryngitis; Translations: [Acute laryngitis] Episodic Residual codes; unclassified (1 source) Treatment not available; Translations: [Procedure and treatment not carried out for other reasons] Episodic Residual codes; unclassified (1 source) Intolerant of cold; Translations: [Other general symptoms and signs] Episodic Sexually transmitted infections (not HIV or hepatitis) (2 sources) Human papillomavirus deoxyribonucleic acid test positive, high risk on cervical specimen; Translations: [Cervical high risk human papillomavirus (HPV) DNA test positive] Episodic Substance-related disorders (20 sources) Cigarette smoker ; Translations: [Nicotine dependence, cigarettes, uncomplicated] Onset: 01-23-2021 01-23-2021 Chronic Viral infection (2 sources) Viral disease; Translations: [Viral infection, unspecified] Episodic Past or Other Problems Problem Classification Problem Date Documented Date Episodic/Chronic Other complications of ; puerperium affecting management of mother (20 sources) Suspected disorder; Translations: [Other known or suspected abnormality, not elsewhere classified, affecting management of mother] Onset: 04-13-2004 04-14-2004 Episodic Other complications of (20 sources) Other specified diseases and conditions complicating , childbirth and the puerperium; Translations: [Other specified complications of , antepartum condition or complication] Onset: 04-21-2004 04-21-2004 Episodic Other screening for suspected conditions (not mental disorders or infectious disease) (2 sources) Mammography abnormal; Translations: [Other abnormal and inconclusive findings on diagnostic imaging of breast] Onset: 09-13-2022 Episodic Spondylosis; intervertebral disc disorders; other back problems (20 sources) Neck pain; Translations: [Cervicalgia] Onset: 06-30-2022 Episodic Results Test Name Value Interpretation Reference Range Facil it Vital Signs Date Time Vital Sign Value Performing Clinician Padmini augustin 10-18-2022 14:51-0500 Body height 169 cm Shelia Keyes APRN.CNP Work Phone: [facility] 10-18-2022 14:51-0500 Body weight 80.29 kg Shelia Keyes APRN.CNP Work Phone: [facility] 10-18-2022 14:51-0500 Diastolic blood pressure 70 mm[Hg] Shelia Keyes APRN.CNP Work Phone: [facility] 10-18-2022 14:51-0500 Heart rate 73 /min Shelia Keyes APRN.CNP Work Phone: [facility] 10-18-2022 14:51-0500 Respiratory rate 18 /min Shelia Keyes APRN.CNP Work Phone: [facility] 10-18-2022 14:51-0500 SaO2% (BldA) [Mass fraction] 98 % Shelia Keyes APRN.CNP Work Phone: [facility] 10-18-2022 14:51-0500 Systolic blood pressure 102 mm[Hg] Shelia Haagen COLLAR TAILOR.AUTOMATION LEAD Work Phone: [facility] 06-14-2022 13:18-0400 Diastolic blood pressure 82 mm[Hg] Shelia Haagen COLLAR TAILOR.AUTOMATION LEAD Work Phone: [facility] 06-14-2022 13:18-0400 Heart rate 65 /min Shelia Haagen COLLAR TAILOR.AUTOMATION LEAD Work Phone: [facility] 06-14-2022 13:18-0400 Respiratory rate 18 /min Shelia Haagen COLLAR TAILOR.AUTOMATION LEAD Work Phone: [facility] 06-14-2022 13:18-0400 SaO2% (BldA) [Mass fraction] 98 % Shelia Haagen COLLAR TAILOR.AUTOMATION LEAD Work Phone: [facility] 06-14-2022 13:18-0400 Systolic blood pressure 120 mm[Hg] Shelia Haagen COLLAR TAILOR.AUTOMATION LEAD Work Phone: [facility] 04-16-2022 11:00-0400 Diastolic blood pressure 90 mm[Hg] Shelia Haagen COLLAR TAILOR.AUTOMATION LEAD Work Phone: [facility] 04-16-2022 11:00-0400 Heart rate 83 /min Shelia Haagen COLLAR TAILOR.AUTOMATION LEAD Work Phone: [facility] 04-16-2022 11:00-0400 Respiratory rate 18 /min Shelia Haagen COLLAR TAILOR.AUTOMATION LEAD Work Phone: [facility] 04-16-2022 11:00-0400 SaO2% (BldA) [Mass fraction] 99 % Shelia Haagen COLLAR TAILOR.AUTOMATION LEAD Work Phone: [facility] 04-16-2022 11:00-0400 Systolic blood pressure 122 mm[Hg] Shelia Haagen COLLAR TAILOR.AUTOMATION LEAD Work Phone: [facility] 12-30-2021 09:48-0400 Body height 168.9 cm Colleen Rodriguez MD Work Phone: [facility] 12-30-2021 09:48-0400 Body weight 78.93 kg Colleen Rodriguez MD Work Phone: [facility] 12-30-2021 09:48-0400 Diastolic blood pressure 80 mm[Hg] Colleen Rodriguez MD Work Phone: [facility] 12-30-2021 09:48-0400 Systolic blood pressure 118 mm[Hg] Colleen Rodriguez MD Work Phone: [facility] Encounters Encounter Date Encounter Type Care Provider Facility Start: 08-16-2023 End: 08-16-2023 [facility] Facility:[facility] Start: 08-16-2023 End: 08-16-2023 Telemedicine consultation with patient Johnie Rauschdonaro PA-C Work Phone: [facility] Start: 08-16-2023 End: 08-16-2023 ambulatory Johnie Bordonaro PA-C Work Phone: Telemedicine Procedures Date Procedure Procedure Detail Performing Clinician Start: 10-18-2022 INFLUENZA VACCINE QUADRIVALENT 6 MO - 64 YRS Shelia [facility] COLLAR TAILOR.AUTOMATION LEAD Work Phone: Start: 09-13-2022 TRELL SCREENING W SAMIA Quezada MD Work Phone: Start: 09-13-2022 Mammography Awa [facility] COLLAR TAILOR.AUTOMATION LEAD Work Phone: Start: 07-01-2021 Adult depression scr eening assessment Colleen Rodriguez MD Work Phone: Plan of Treatment Date Care Activity Detail Author Start: 03-14-2031 Urine microalbumin profile DTaP,Tdap,Td Vaccine (8 - Td or Tdap) [facility] Start: 08-18-2030 Urine microalbumin profile DTAP,TDAP,TD (2 - Td or Tdap) [facility] Start: 12-30-2026 HPV TESTING HPV TESTING [facility] Start: 12-30-2026 PAP TESTING PAP TESTING [facility] Start: 08-18-2025 HPV TESTING HPV TESTING [facility] Start: 08-18-2025 PAP TESTING PAP TESTING [facility] Start: 04-22-2024 Annual PCP Team 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 Driver ashli Disease Visit Annual PCP Team Chronic Disease Visit [facility] Start: 04-01-2024 ANNUAL PCP TEAM COMPENSATION INTERN ASHLI DISEASE VISIT ANNUAL PCP TEAM CHRONIC DISEASE VISIT [facility] Start: 02-01-2024 ANNUAL PCP TEAM COMPENSATION INTERN ASHLI DISEASE VISIT ANNUAL PCP TEAM CHRONIC DISEASE VISIT [facility] Start: 10-18-2023 ANNUAL PCP TEAM COMPENSATION INTERN ASHLI DISEASE VISIT ANNUAL PCP TEAM CHRONIC DISEASE VISIT [facility] Start: 09-17-2023 ANNUAL PCP TEAM COMPENSATION INTERN ASHLI DISEASE VISIT ANNUAL PCP TEAM CHRONIC DISEASE VISIT [facility] Start: 09-13-2023 Mammography [facility] Start: 08-02-2023 ANNUAL PCP TEAM COMPENSATION INTERN ASHLI DISEASE VISIT ANNUAL PCP TEAM CHRONIC DISEASE VISIT [facility] Start: 06-14-2023 ANNUAL PCP TEAM COMPENSATION INTERN ASHLI DISEASE VISIT ANNUAL PCP TEAM CHRONIC DISEASE VISIT [facility] Start: 06-03-2023 Influenza vaccination Influenz a Vaccine (#1) [facility] Start: 04-16-2023 ANNUAL PCP TEAM COMPENSATION INTERN ASHLI DISEASE VISIT ANNUAL PCP TEAM CHRONIC DISEASE VISIT [facility] Start: 04-16-2023 Hepb vaccine adult 3 dose schedule for im use HEPATITIS B VACCINE, ADULT AGE 20+, IM Immunization/Injectio n Routine Expected: 04/16/2023 [facility] Work Phone: Immunizations Immunization Date Immunization Notes Care Provider Fa cility 10-18-2022 pneumococcal Conjuga te, unspecified formulation Shelia Keyes COLLAR TAILOR.AUTOMATION LEAD Work Phone: [facility] Work Phone: 10-18-2022 influenza, injectabl e, quadrivalent, contains preservative Shelia Keyes COLLAR TAILOR.AUTOMATION LEAD Work Phone: [facility] 10-18-2022 pneumococcal (PCV20) vaccine, 20 valent (PREVNAR 20) Shelia Keyes COLLAR TAILOR.AUTOMATION LEAD Work Phone: [facility] 10-18-2022 influenza virus vacc ine, unspecified formulation Screen Wstr [facility] 09-30-2021 influenza, injectabl e, quadrivalent, contains preservative Colleen Rodriguez MD Work Phone: [facility] 09-30-2021 pneumococcal polysaccharide vaccine, 23 valent Colleen Rodriguez MD Work Phone: [facility] 08-18-2020 influenza, injectabl e, quadrivalent, contains preservative Colleen Rodriguez MD Work Phone: [facility] 08-18-2020 tetanus toxoid, redu deena diphtheria toxoid, and acellular pertussis vaccine, adsorbed Colleen Rodriguez MD Work Phone: [facility] Payers Date Payer Category Payer Medicaid [id number] 2019 Medicaid [facility] MEDICAID [facility] MEDICAID [id number] 2019-Present [phone] [address] [place] [address] Medicaid [id number] 2019 Medicaid [id number] 2019 Medicaid [id number] Social History Date Type Detail Facility Start: 11-23-2018 End: 06-14-2022 Tobacco smoking status NHIS Smokes tobacco daily [facility] History of tobacco use Cigarette Smoker C [facility] Start: 11-23-2018 End: 04-22-2023 Cigarettes smoked current (pack per day) - Reported 1.5 [facility] Start: 11-23-2018 End: 06-14-2022 Tobacco use and exposure Smokeless tobacco non-user [facility] Start: 12-30-2021 End: 11-13-2022 Alcohol intake Current non-drinker of alcohol (finding) [facility] Start: 06-29-2020 End: 09-17-2022 History SDOH Alcohol Frequency 1 [facility] Start: 07-29-2020 History SDOH Alcohol Std Drinks 98 [facility] Start: 07-29-2020 End: 09-17-2022 History SDOH Social Connections Phone 2 [facility] Start: 06-29-2020 End: 09-17-2022 History SDOH Social Connections Living 7 [facility] Start: 06-29-2020 History SDOH Physica l Activity DPW 0 [facility] Start: 07-29-2020 End: 09-17-2022 History SDOH Stress 5 [facility] Start: 06-29-2020 Education 11 [facility] Start: 01-24-2021 End: 06-14-2022 Tobacco Comment down to 1/2 PPD [facility] Start: 1980 Sex Assigned At Female C [facility] Start: 12-20-2021 End: 2022 Exposure to SARS-CoV-2 (event) Not sure [facility] Start: 09-17-2022 History SDOH Stress 3 [facility] Start: 07-28-2020 End: 04-22-2023 Social connection and isolation panel [facility] How often do you get together with friends or relatives? Patient refused [facility] How often do you hav e 6 or more drinks on 1 occasion? Never [facility] How hard is it for y ou to pay for the very basics like food, housing, medical care, and heating Very hard [facility] Do you feel stress - tense, restless, nervous, or anxious, or unable to sleep at night because your mind is troubled all the time - these days [OSQ] Very much [facility] (I/We) worried shelby er (my/our) food would run out before (I/we) got money to buy more. Sometimes true [facility] In the past 12 month s, was there a time when you were not able to pay the mortgage or rent on time? No [facility] Start: 04-28-2020 Gender identity Identifies as female gender (finding) [facility] Start: 04-28-2020 Sexual orientation Heterosexual (nyla john) [facility] Are you now , , , , never or living with a partner? Never [facility] How often to you hav e a drink containing alcohol? Monthly or less [facility] How many standard dr inks containing alcohol do you have on a typical day? 1 or 2 [facility] Do you feel stress - tense, restless, nervous, or anxious, or unable to sleep at night because your mind is troubled all the time - these days [OSQ] To some extent [facility] Clinical Notes 12-30-2021 to 08-16-2023 Johnie Beverly PA-C - 08/16/2023 4:02 PM ESTTelephone Encounter - Tyron StanfordOSIRIS pedroza - 08/16/2023 3:04 PM Deepika Keyes APRN.CNP - 04/01/2023 11:47 AM EDTPatient Instructions Note Date & Type Note Facility 08-16-2023 Note HNO ID: [id number] Author: Johnie Beverly PA-C Service: ? Author Type: Physician Flavoring Machine Operator Type: Progress Notes Filed: 08/16/2023 4:26 PM Note Text: Telemedicine Visit - Distance Health Virtual Visit Note Patient seen on [employer] Video Visit platform. Location of patient: [place] I have communicated my name and active licensure. The patient's identity and physical location were verified at the time of this visit. Either the patient or their legal patient support representative has been informed of the risks and benefits of -- and alternatives to -- treatment through a remote evaluation and consents to proceed with the evaluation remotely. History of Present Illness Naya Kaur is a 43 year old year old female who presents for the past 3 days with symptoms that are:gradually worsening. Symptoms include: Positive for Cough, Wheezing, and Diarrhea, Negative for Fever Oral intake: normal Tobacco use: Yes Second hand smoke exposure: No Recent exposure to strep:No Sick contacts: denies Recent travel: denies OTC meds/remedies that patient has tried: albuterol nebulizer. PAST MEDICAL HISTORY Diagnosis Date Asthma OMARI (generalized anxiety disorder) PTSD (post-traumatic stress disorder) PAST SURGICAL HISTORY Procedure Laterality Date D AND C LIG/TRNSXJ FLP TUBE ABDL/VAG APPR UNI/BI FAMILY HISTORY Problem Relation Age of Onset Neuropathy Mother Dementia Mother Fibromyalgia Mother other (Murdered) Father other (suicide) Child Social History Tobacco Use Smoking status: Every Day Packs/day: 1.50 Years: 20.00 Additional pack years: 0.00 Total pack years: 30.00 Types: Cigarettes Smokeless tobacco: Never Tobacco comments: down to 1/2 PPD Vaping Use Vaping Use: Never used Substance Use Topics Alcohol use: No Drug use: Never Current Outpatient Medications Medication Sig ipratropium-albuterol (DUONEB) 0.5 mg-3 mg(2.5 mg base)/3 mL nebu Inhale 3 mL as instructed every 6 hours as needed. ipratropium 20 mcg-albuterol 100 mcg (COMBIVENT RESPIMAT) 20-100 mcg/actuation inhaler Inhale 1 Puff as instructed every 6 hours as needed for wheezing/shortness of breath. albuterol (PROVENTIL) 2.5 mg /3 mL (0.083 %) nebulizer solution Use 3 mL via nebulizer every 4 hours as needed for wheezing/shortness of breath. Use over 5-15minutes. meloxicam (MOBIC) 15 mg tablet Take 1 tablet by mouth once daily. With food. albuterol HFA (VENTOLIN HFA) 90 mcg/actuation inhaler Inhale 2 Puffs as instructed every 4 hours as needed for wheezing/shortness of breath. No current facility-administered medications for this visit. ALLERGIES Allergen Reactions Augmentin [Amoxicil* GI Upset vomit No Latex Allergy [O* Video Exam (Examination performed via Video enabled technology) General appearance: Alert, oriented, pleasant, in NAD :Yes Ill appearing :No Lethargic appearing :No Eyes: Sclera clear :Yes Conjunctiva without erythema :Yes Ears: Tragus / outer ear tenderness by self palpation :No Oropharynx: normal, no erythema Frontal sinus tenderness by self palpation;No Maxillary sinus tenderness by self palpation :No Tender cervical adenopathy by self palpation :No Respiratory distress :No Coughing noted :No Audible wheezing noted :Yes ASSESSMENT/PLAN: 1. Exacerbation of intermittent asthma, unspecified asthma severity - ICD9: 493.92, ICD10: J45.21 Pt was told 04/2023 to see pulmonology but did not . Discussed use of prednisone for current asthma issue but discussed risks of steroids including AVN, metabolic issues, etc Pt verbalized understanding but would like prednisone taper Moderate persistent asthma acute excacerbation without status Encourage to get reestablished with pulmonology. Discussed that she needs to see pulm prior to further treatment from [facility] Diagnosis and treatment plan were discussed and questions were answered to the patient's satisfaction. Pt acknowledged understanding of concepts and follow up plan. Specific signs and symptoms that would indicate the need for higher level of care were discussed in detail warranting prompt ER evaluation. Seek urgent medical care for worsening facial pain, headache, cough, shortness of breath, wheezing, chest pain, palpitation, dizziness, nausea, vomiting, diarrhea, unable to drink fluid, leg or arm weakness, change in vision, or any other concerning symptoms. - Red flags discussed for need for in person care - All questions answered Johnie Beverly PA-C If you let us know who your primary care provider is, we will send them a notification of today?s visit through our electronic medical records system. Since not all providers have access to our notifications, we strongly encourage you to share the following record of today?s visit with your primary care provider at your next visit. This will help in providing you the best care. If you do not have an established Primary C (more content not included)... [facility] 08-16-2023 History of Present illness Narrative Telemedicine Visit - Distance Health Virtual Visit Note Patient seen on [employer] Video Visit platform. Location of patient: [place] I have communicated my name and active licensure. The patient's identity and physical location were verified at the time of this visit. Either the patient or their legal patient support representative has been informed of the risks and benefits of -- and alternatives to -- treatment through a remote evaluation and consents to proceed with the evaluation remotely. History of Present Illness Naya Kaur is a 43 year old year old female who presents for the past 3 days with symptoms that are:gradually worsening. Symptoms include: Positive for Cough, Wheezing, and Diarrhea, Negative for Fever Oral intake: normal Tobacco use: Yes Second hand smoke exposure: No Recent exposure to strep:No Sick contacts: denies Recent travel: denies OTC meds/remedies that patient has tried: albuterol nebulizer. PAST MEDICAL HISTORY Diagnosis Date Asthma OMARI (generalized anxiety disorder) PTSD (post-traumatic stress disorder) PAST SURGICAL HISTORY Procedure Laterality Date D AND C LIG/TRNSXJ FLP TUBE ABDL/VAG APPR UNI/BI FAMILY HISTORY Problem Relation Age of Onset Neuropathy Mother Dementia Mother Fibromyalgia Mother other (Murdered) Father other (suicide) Child Social History Tobacco Use Smoking status: Every Day Packs/day: 1.50 Years: 20.00 Additional pack years: 0.00 Total pack years: 30.00 Types: Cigarettes Smokeless tobacco: Never Tobacco comments: down to 1/2 PPD Vaping Use Vaping Use: Never used Substance Use Topics Alcohol use: No Drug use: Never Current Outpatient Medications Medication Sig ipratropium-albuterol (DUONEB) 0.5 mg-3 mg(2.5 mg base)/3 mL nebu Inhale 3 mL as instructed every 6 hours as needed. ipratropium 20 mcg-albuterol 100 mcg (COMBIVENT RESPIMAT) 20-100 mcg/actuation inhaler Inhale 1 Puff as instructed every 6 hours as needed for wheezing/shortness of breath. albuterol (PROVENTIL) 2.5 mg /3 mL (0.083 %) nebulizer solution Use 3 mL via nebulizer every 4 hours as needed for wheezing/shortness of breath. Use over 5-15minutes. meloxicam (MOBIC) 15 mg tablet Take 1 tablet by mouth once daily. With food. albuterol HFA (VENTOLIN HFA) 90 mcg/actuation inhaler Inhale 2 Puffs as instructed every 4 hours as needed for wheezing/shortness of breath. No current facility-administered medications for this visit. ALLERGIES Allergen Reactions Augmentin [Amoxicil* GI Upset vomit No Latex Allergy [O* Video Exam (Examination performed via Video enabled technology) General appearance: Alert, oriented, pleasant, in NAD :Yes Ill appearing :No Lethargic appearing :No Eyes: Sclera clear :Yes Conjunctiva without erythema :Yes Ears: Tragus / outer ear tenderness by self palpation :No Oropharynx: normal, no erythema Frontal sinus tenderness by self palpation;No Maxillary sinus tenderness by self palpation :No Tender cervical adenopathy by self palpation :No Respiratory distress :No Coughing noted :No Audible wheezing noted :Yes ASSESSMENT/PLAN: 1. Exacerbation of intermittent asthma, unspecified asthma severity - ICD9: 493.92, ICD10: J45.21 Pt was told 04/2023 to see pulmonology but did not . Discussed use of prednisone for current asthma issue but discussed risks of steroids including AVN, metabolic issues, etc Pt verbalized understanding but would like prednisone taper Moderate persistent asthma acute excacerbation without status Encourage to get reestablished with pulmonology. Discussed that she needs to see pulm prior to further treatment from [facility] Diagnosis and treatment plan were discussed and questions were answered to the patient's satisfaction. Pt acknowledged understanding of concepts and follow up plan. Specific signs and symptoms that would indicate the need for higher level of care were discussed in detail warranting prompt ER evaluation. Seek urgent medical care for worsening facial pain, headache, cough, shortness of breath, wheezing, chest pain, palpitation, dizziness, nausea, vomiting, diarrhea, unable to drink fluid, leg or arm weakness, change in vision, or any other concerning symptoms. - Red flags discussed for need for in person care - All questions answered Johnie Beverly PA-C If you let us know who your primary care provider is, we will send them a notification of today s visit through our electronic medical records system. Since not all providers have access to our notifications, we strongly encourage you to share the following record of today s visit with your primary care provider at your next visit. This will help in providing you the best care. If you do not have an established Primary Care physician and would like to continue care with a [facility] Virtual Primary Care physician, please ask your provider to place a Establish Primary Care order. Use [employer] to manage your care, wherever you are, 25/04, on your mobile device or computer. [employer] connects you to [facility] so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 status: Alert. Speech is clear and fluent with good repetition, comprehension Appearance - Normal hygiene and grooming appropriate Coordination: No abnormal or extraneous movements. Gait/Stance: Posture is normal. Health Maintenance List HEPATITIS B(1 of 3 - 3-dose series) Never done COVID-19 VACCINE(1) Never done HEPATITIS C SCREENING Never done DEPRESSION ASSESSMENT Never done MAMMOGRAM due on 09/13/2023 ANNUAL PCP TEAM CHRONIC DISEASE VISIT due on 10/18/2023 PAP TESTING due on 12/30/2026 HPV TESTING due on 12/30/2026 DTAP,TDAP,TD(2 - Td or Tdap) due on 08/18/2030 SPIROMETRY Completed INFLUENZA Completed HIV SCREENING Completed PNEUMOCOCCAL Completed Data reviewed Last 5 Encounter BP Readings: Date: BP: 11/13/2022 122/82 10/18/2022 102/70 2022 114/80 06/14/2022 120/82 04/16/2022 122/90 BMI Readings from Last 5 Encounters: 11/13/22 : 27.73 kg/m 10/18/22 : 28.11 kg/m 12/30/21 : 27.66 kg/m 10/15/21 : 26.52 kg/m 10/05/21 : 26.52 kg/m Last 5 Encounter Wt Readings: Date: Wt: 11/13/2022 79.2 kg (174 lb 9.6 oz) 10/18/2022 80.3 kg (177 lb) 12/30/2021 78.9 kg (174 lb) 10/15/2021 75.8 kg (167 lb) 10/05/2021 75.8 kg (167 lb) Medication and allergy list reviewed, reconciled and updated 01/31/2023 ASSESSMENT/PLAN: 1. Bronchitis - ICD9: 490, ICD10: J40 Will start z-pack and prednisone. She reports that her pharmacy told her that DuoNeb is on backorder and not currently available. We will go ahead and order Combivent inhaler and plain albuterol nebulizers to use as needed. - IPRATROPIUM 20 MCG-ALBUTEROL 100 MCG/ACTUATION MIST FOR INHALATION - ALBUTEROL SULFATE 2.5 MG/3 ML (0.083 %) SOLUTION FOR NEBULIZATION - AZITHROMYCIN 250 MG TABLET - PREDNISONE 10 MG TABLET Discussed treatment plan and patient voices understanding. Patient's questions answered appropriately. Medications and potential side effects were discussed and patient voices understanding. Return to the office as scheduled or as needed for worsening/no improvement. Shelia Keyes APRN.ANABELL documented in this encounter [facility] 11-15-2022 Miscellaneous Notes LEFT MESSAGE FOR PATIENT TO CALL BACK /MARQUIS NEWELL Images from the original note were not included. The patient has not viewed the following result(s) yet. STREP A MOLECULAR (POC) Order: [id number] Status: Final result Visible to patient: Yes (not seen) Next appt: 11/22/2022 at 02:30 PM in [facility] (Colleen Ramírez MD) Dx: Sore throat; Laryngitis Specimen Information: THROAT SWAB 0 Result Notes 1 Patient Communication Component Ref Range & Units 2 d ago Strep A (POCT) Negative Negative Procedural Control Valid Resulting Agency [facility] Specimen Collected: 11/13/22 1:13 PM EST Last Resulted: 11/13/22 1:13 PM EST Lab Flowsheet Order Details View Encounter Lab and Collection Details Routing Result History View Encounter Conversation Result Care Coordination Patient Communication Edit Comments Add Notifications Back to Top You tested negative for COVID and Influenza. If you were tested because you were having symptoms, please monitor these symptoms and for any worrisome symptoms, please call your primary care provider or schedule a visit with [facility]. ... Written by Vandana Scott APRN.CNP on 11/14/2022 8:12 AM EST View Full Comments Status of Other Orders Completed COVID WITH FLUA+B, ROUTINE 11/14/22 documented in this encounter [facility] 11-13-2022 Note HNO ID: [id number] Author: Brooklyn Cramer APRN.ANABELL Service: ? Author Type: Nurse Practitioner Type: Progress Notes Filed: 11/13/2022 1:38 PM Note Text: This note was created using [employer]. Subjective Naya Kaur is a 42 year old female. Tuesday lost voice. Albuterol nebulizer helps with cough with SOB and wheezing q6 hours. Son positive for Flu on Tuesday. Tylenol cold and flu helps with cough, runny nose and sleep. SOB has gotten worse. About 6 bottles of water since being sick. Vomit episodes X2 in the morning reports appears mucoid and brown. Diarrhea episodes x3/day. Able to eat a sandwich yesterday and crackers throughout the day. Reports intermittent laryngitis since COVID episode last year. Review of Systems Constitutional: Positive for chills, diaphoresis and fatigue. HENT: Positive for congestion, ear pain (L ear), postnasal drip, rhinorrhea, sinus pressure, sinus pain, sore throat and voice change. Negative for ear discharge and trouble swallowing. Eyes: Negative for visual disturbance. Respiratory: Positive for cough, chest tightness, shortness of breath and wheezing. Cardiovascular: Positive for chest pain (intermittent). Gastrointestinal: Positive for abdominal pain, diarrhea, nausea and vomiting. Negative for blood in stool. Genitourinary: Negative for decreased urine volume and dysuria. Musculoskeletal: Negative for arthralgias. Skin: Negative for rash. Neurological: Positive for light-headedness and headaches (throbbing, 5/10). Negative for dizziness and syncope. Objective BP 122/82 Pulse 67 Temp 37 ?C (98.6 ?F) (Tympanic) Resp 16 Wt 79.2 kg (174 lb 9.6 oz) LMP 10/11/2022 (Approximate) SpO2 97% BMI 27.73 kg/m? PAST MEDICAL HISTORY Diagnosis Date Asthma OMARI (generalized anxiety disorder) PTSD (post-traumatic stress disorder) PAST SURGICAL HISTORY Procedure Laterality Date D AND C LIG/TRNSXJ FLP TUBE ABDL/VAG APPR UNI/BI ALLERGIES Augmentin [Amoxicillin-Pot Clavulanate] and No Latex Allergy [Other] MEDICATIONS meloxicam (MOBIC) 15 mg tablet Take 1 tablet by mouth once daily. With food. ipratropium-albuterol (DUONEB) 0.5 mg-3 mg(2.5 mg base)/3 mL nebu Inhale 3 mL as instructed every 6 hours as needed. albuterol HFA (VENTOLIN HFA) 90 mcg/actuation inhaler Inhale 2 Puffs as instructed every 4 hours as needed for wheezing/shortness of breath. predniSONE (DELTASONE) 10 mg tablet Take 4 tabs daily for 3 days, then 2 tabs daily for 3 days, then 1 tab daily for 3 days with food. fluticasone-vilanterol (BREO ELLIPTA) 200-25 mcg/dose inhaler Inhale 1 Inhalation as instructed once daily. FAMILY HISTORY Problem Relation Age of Onset Neuropathy Mother Dementia Mother Fibromyalgia Mother other (Murdered) Father other (suicide) Child Social History Tobacco Use Smoking status: Every Day Packs/day: 1.50 Years: 20.00 Pack years: 30.00 Types: Cigarettes Smokeless tobacco: Never Tobacco comments: down to 1/2 PPD Vaping Use Vaping Use: Never used Substance Use Topics Alcohol use: No Drug use: Never Physical Exam Vitals reviewed. Constitutional: General: She is not in acute distress. Appearance: Normal appearance. She is ill-appearing. HENT: Head: Normocephalic and atraumatic. Right Ear: External ear normal. Tenderness present. Tympanic membrane is injected. Tympanic membrane is not bulging. Left Ear: Tympanic membrane, ear canal and external ear normal. Nose: Congestion present. No rhinorrhea. Mouth/Throat: Mouth: Mucous membranes are moist. Dentition: Abnormal dentition. Has dentures. Dental caries present. Pharynx: Oropharynx is clear. No posterior oropharyngeal erythema. Cardiovascular: Rate and Rhythm: Normal rate and regular rhythm. Pulses: Normal pulses. Heart sounds: Normal heart sounds. Pulmonary: Effort: Pulmonary effort is normal. No respiratory distress. Breath sounds: Examination of the right-middle field reveals wheezing. Examination of the left-middle field reveals wheezing. Wheezing present. Abdominal: General: Abdomen is flat. Palpations: Abdomen is soft. Tenderness: There is abdominal tenderness in the right lower quadrant, suprapubic area and left lower quadrant. There is no rebound. Skin: General: Skin is warm. Findings: No rash. Neurological: General: No focal deficit present. Mental Status: She is alert. Assessment and Plan ASSESSMENT/PLAN: 1. Mild intermittent asthma with acute exacerbation - ICD9: 493.92, ICD10: J45.21 (primary diagnosis) Mild intermittent Asthma acute excacerbation without status and no respiratory distress - factors affecting control of asthma include lack of avoidance of triggers: Smoking - Continue current meds - Avoidance of triggers recommended - Asthma education of environmental control: smoking cessation encouraged - PREDNISONE 10 MG TABLET taper - Reviewed common s/e 2. Laryngitis - ICD (more content not included)... [facility] 10-18-2022 Note HNO ID: [id number] Author: Shelia Keyes APRN.AUTOMATION LEAD Service: ? Author Type: Nurse Practitioner Type: Progress Notes Filed: 10/18/2022 8:17 PM Note Text: This is a 42 year old female who presents today with: Patient presents with: Yearly Exam HISTORY OF PRESENT ILLNESS: Naya Kaur is a 42 year old female. Patient presents with: Yearly Exam Pt presents today for wellness exam. REVIEW OF SYSTEMS GENERAL: No weight loss, malaise or fevers/chills HEENT: Negative for frequent or significant headaches, No changes in hearing or vision. NECK: Negative for lumps, goiter, pain and significant neck swelling RESPIRATORY: Negative for cough, hemoptysis, wheezing, dyspnea or shortness of breath. Its a urbina. Voice comes and goes. CARDIOVASCULAR: Negative for chest pain, leg swelling, orthopnea, or palpitations GI: No nausea, vomiting, or diarrhea/constipation. No hematochezia/melena. No heartburn or reflux symptoms. : No history of dysuria, frequency or incontinence. Some days will have urgency. MUSCULOSKELETAL: Negative for joint pain or swelling. Refers that knees and hips will get painful-- refers that after working 4-5 days, will nearly have to crawl up the steps to get to bed. Currently using ibuprofen 800 mg. SKIN: Negative for lesions, rash, and itching ENDOCRINE: Negative for cold or heat intolerance, polyuria, polydipsia and goiter. Cold all the time. NEURO: No history of headaches, syncope, paralysis, seizures or tremors Tobacco Down to three packs/week. Laryngitis Frequent episodes of laryngitis. Does report that this seems to be associated with increased sputum production when it occurs. Patient is a smoker 14 years. PAST MEDICAL HISTORY: PAST MEDICAL HISTORY Diagnosis Date Asthma OMARI (generalized anxiety disorder) PTSD (post-traumatic stress disorder) PAST SURGICAL HISTORY Procedure Laterality Date D AND C LIG/TRNSXJ FLP TUBE ABDL/VAG APPR UNI/BI ALLERGIES Augmentin [Amoxicillin-Pot Clavulanate] and No Latex Allergy [Other] MEDICATIONS Current Outpatient Medications Medication Sig ipratropium-albuterol (DUONEB) 0.5 mg-3 mg(2.5 mg base)/3 mL nebu Inhale 3 mL as instructed every 6 hours as needed. albuterol HFA (VENTOLIN HFA) 90 mcg/actuation inhaler Inhale 2 Puffs as instructed every 4 hours as needed for wheezing/shortness of breath. fluticasone-vilanterol (BREO ELLIPTA) 200-25 mcg/dose inhaler Inhale 1 Inhalation as instructed once daily. No current facility-administered medications for this visit. FAMILY HISTORY Problem Relation Age of Onset Neuropathy Mother Dementia Mother Fibromyalgia Mother other (Murdered) Father other (suicide) Child Social History Tobacco Use Smoking status: Every Day Packs/day: 1.50 Years: 20.00 Pack years: 30.00 Types: Cigarettes Smokeless tobacco: Never Tobacco comments: down to 1/2 PPD Vaping Use Vaping Use: Never used Substance Use Topics Alcohol use: No Drug use: Never EXAM: BP 102/70 Pulse 73 Resp 18 Ht 169 cm (5' 6.54 ) Wt 80.3 kg (177 lb) LMP 10/11/2022 (Approximate) SpO2 98% BMI 28.11 kg/m? PHYSICAL EXAM: General Appearance: Well appearing, alert, in no acute distress, well-hydrated, well nourished.. Skin: Skin color, texture, turgor normal, no suspicious rashes or lesions. Head: Normocephalic, no masses, lesions, tenderness or abnormalities. Eyes: Anicteric sclera. Pupils are equally round and reactive to light. Extraocular movements are intact. . Ears: External ears normal, canals clear. Normal TMs bilaterally. Oropharynx: Lips, mucosa, and tongue normal, teeth and gums normal, oropharynx normal. Neck: Supple, no adenopathy; thyroid symmetric, normal size, no bruits. Lungs: Lungs clear to auscultation. No wheezing, rhonchi, rales.. Heart: RRR without murmur, gallop, or rubs. No ectopy. Abdomen: Normal abdominal exam, Abdomen soft, non-tender. Bowel sounds normal. No masses, organomegaly. Extremities: No deformities, edema, skin discoloration, clubbing or cyanosis. Good capillary refill. . Neurologic: Gait normal. Reflexes normal and symmetric. Sensation grossly intact.. ASSESSMENT/PLAN: 1. Wellness examination - ICD9: V70.0, ICD10: Z00.00 (primary diagnosis) - Smoking cessation encouraged; discussed risks to health and quitting strategies. Patient is not ready to quit - Patient was counseled [id number] by myself (the billing provider) for the following immunizations and vaccine components, including side effects: COVID-19, Hep B Vaccine, Influenza, and Pneumococcal . Patient consents for immunization and understands risks and benefits. A VIS sheet on each immunization was given to the patient. - Follow up for annual exam in one year - LIPID PANEL BASIC - CBC + DIFF - COMP METABOLIC PANEL 2. Laryngitis - ICD9: 464.00, ICD10: J04.0 Patient with frequent episodes of laryngitis. We will go ahead and refer to (more content not included)... [facility] 10-18-2022 Instructions Shelia Keyes APRN.ANABELL - 10/18/2022 3:25 PM EST Return for fasting labs. Set up nurse visit for covid/hep b vaccine. Try the meloxicam daily - with food. Schedule with ENT. Health Promotion: - Eat healthy -- go to [employer] to get started - Have a yearly physical - Mammogram yearly after age 40 - Get at least 30 minutes of physical activity daily - Get at least 7 to 8 hours of sleep each night - Reach and maintain a healthy weight - Get help to quit or don't start smoking - Limit alcohol use to one drink or less - Do not use illegal drugs or misuse prescription drugs - Wear a helmet when riding a bike and wear protective gear for sports - Wear a seatbelt in cars and not text and drive - Wear sunscreen;l documented in this encounter [facility] 10-18-2022 History of Present illness Narrative This is a 42 year old female who presents today with: Patient presents with: Yearly Exam HISTORY OF PRESENT ILLNESS: Naya Kaur is a 42 year old female. Patient presents with: Yearly Exam Pt presents today for wellness exam. REVIEW OF SYSTEMS GENERAL: No weight loss, malaise or fevers/chills HEENT: Negative for frequent or significant headaches, No changes in hearing or vision. NECK: Negative for lumps, goiter, pain and significant neck swelling RESPIRATORY: Negative for cough, hemoptysis, wheezing, dyspnea or shortness of breath. Its a urbina. Voice comes and goes. CARDIOVASCULAR: Negative for chest pain, leg swelling, orthopnea, or palpitations GI: No nausea, vomiting, or diarrhea/constipation. No hematochezia/melena. No heartburn or reflux symptoms. : No history of dysuria, frequency or incontinence. Some days will have urgency. MUSCULOSKELETAL: Negative for joint pain or swelling. Refers that knees and hips will get painful-- refers that after working 4-5 days, will nearly have to crawl up the steps to get to bed. Currently using ibuprofen 800 mg. SKIN: Negative for lesions, rash, and itching ENDOCRINE: Negative for cold or heat intolerance, polyuria, polydipsia and goiter. Cold all the time. NEURO: No history of headaches, syncope, paralysis, seizures or tremors Tobacco Down to three packs/week. Laryngitis Frequent episodes of laryngitis. Does report that this seems to be associated with increased sputum production when it occurs. Patient is a smoker 14 years. PAST MEDICAL HISTORY: PAST MEDICAL HISTORY Diagnosis Date Asthma OMARI (generalized anxiety disorder) PTSD (post-traumatic stress disorder) PAST SURGICAL HISTORY Procedure Laterality Date D AND C LIG/TRNSXJ FLP TUBE ABDL/VAG APPR UNI/BI ALLERGIES Augmentin [Amoxicillin-Pot Clavulanate] and No Latex Allergy [Other] MEDICATIONS Current Outpatient Medications Medication Sig ipratropium-albuterol (DUONEB) 0.5 mg-3 mg(2.5 mg base)/3 mL nebu Inhale 3 mL as instructed every 6 hours as needed. albuterol HFA (VENTOLIN HFA) 90 mcg/actuation inhaler Inhale 2 Puffs as instructed every 4 hours as needed for wheezing/shortness of breath. fluticasone-vilanterol (BREO ELLIPTA) 200-25 mcg/dose inhaler Inhale 1 Inhalation as instructed once daily. No current facility-administered medications for this visit. FAMILY HISTORY Problem Relation Age of Onset Neuropathy Mother Dementia Mother Fibromyalgia Mother other (Murdered) Father other (suicide) Child Social History Tobacco Use Smoking status: Every Day Packs/day: 1.50 Years: 20.00 Pack years: 30.00 Types: Cigarettes Smokeless tobacco: Never Tobacco comments: down to 1/2 PPD Vaping Use Vaping Use: Never used Substance Use Topics Alcohol use: No Drug use: Never EXAM: BP 102/70 Pulse 73 Resp 18 Ht 169 cm (5' 6.54 ) Wt 80.3 kg (177 lb) LMP 10/11/2022 (Approximate) SpO2 98% BMI 28.11 kg/m PHYSICAL EXAM: General Appearance: Well appearing, alert, in no acute distress, well-hydrated, well nourished.. Skin: Skin color, texture, turgor normal, no suspicious rashes or lesions. Head: Normocephalic, no masses, lesions, tenderness or abnormalities. Eyes: Anicteric sclera. Pupils are equally round and reactive to light. Extraocular movements are intact. . Ears: External ears normal, canals clear. Normal TMs bilaterally. Oropharynx: Lips, mucosa, and tongue normal, teeth and gums normal, oropharynx normal. Neck: Supple, no adenopathy; thyroid symmetric, normal size, no bruits. Lungs: Lungs clear to auscultation. No wheezing, rhonchi, rales.. Heart: RRR without murmur, gallop, or rubs. No ectopy. Abdomen: Normal abdominal exam, Abdomen soft, non-tender. Bowel sounds normal. No masses, organomegaly. Extremities: No deformities, edema, skin discoloration, clubbing or cyanosis. Good capillary refill. . Neurologic: Gait normal. Reflexes normal and symmetric. Sensation grossly intact.. ASSESSMENT/PLAN: 1. Wellness examination - ICD9: V70.0, ICD10: Z00.00 (primary diagnosis) - Smoking cessation encouraged; discussed risks to health and quitting strategies. Patient is not ready to quit - Patient was counseled [id number] by myself (the billing provider) for the following immunizations and vaccine components, including side effects: COVID-19, Hep B Vaccine, Influenza, and Pneumococcal . Patient consents for immunization and understands risks and benefits. A VIS sheet on each immunization was given to the patient. - Follow up for annual exam in one year - LIPID PANEL BASIC - CBC + DIFF - COMP METABOLIC PANEL 2. Laryngitis - ICD9: 464.00, ICD10: J04.0 Patient with frequent episodes of laryngitis. We will go ahead and refer to a ENT to eval if laryngoscopy is indicated due to smoking history. - CONSULT TO ENT 3. Cold intolerance - ICD9: 780.99, ICD10: R68.89 - TSH BLD - T4 FREE/FREE THYROX 4. Arthralgia of both knees - ICD9: 719.46, ICD10: M25.561, M25.562 Stop ibuprofen. Trial of meloxicam. - MELOXICAM 15 MG TABLET 5. Encounter for immunization - ICD9: V03.89, ICD10: Z23 - INFLUENZA VACCINE QUADRIVALENT 6 MO - 64 YRS IM - PNEUMOCOCCAL VACCINE (PREVNAR 20) - IntraStage COVID-19 PRIMARY SERIES VACCINE, AGE 12+ YR 6. Special screening examination for viral disease - ICD9: V73.99, ICD10: Z11.59 - HEP C AB IA W/CONF SCRN 7. Cigarette smoker - ICD9: 305.1, ICD10: F17.210 - Cessation encouraged. - Physiologic and physical aspects of tobacco addiction as well as strategies for quitting were discussed. - Counseling was given focusing on the harmful effects of this addiction especially given the patient's medical condition(s) which will be worsened because of the chemicals in tobacco. 8. Mild persistent asthma with exacerbation - ICD9: 493.92, ICD10: J45.31 Stable. Continue per pulmonology. Discussed treatment plan and patient voices understanding. Patient's questions answered appropriately. Medications and potential side effects were discussed and patient voices understanding. Return to the office as scheduled or as needed for worsening/no improvement. Shelia Keyes APRN.CNP This note was partially generated using [employer] voice recognition system. Note was reviewed for accuracy. There may be minor misspellings or grammar miscues with [employer] voice recognition. documented in this encounter [facility] 09-17-2022 Note HNO ID: [id number] Author: Cesar Méndez APRN.CNP Service: ? Author Type: Nurse Practitioner Type: Progress Notes Filed: 09/17/2022 10:37 AM Note Text: Chief Complaint Patient presents with: Cough: Asthma This Team Access Model encounter involved medical decision making outside of a scheduled office visit. Patient was offered a virtual/telemedicine appointment in lieu of an office visit due to recommendations to reduce patient exposure to COVID-19. Video was used for evaluation of this patient. Patient agrees to the visit: Yes Patient Location: [facility] Naya Kaur is a 42 year old female who is contacted today for a virtual visit This is an established patient of Dr. Shelia Keyes APRN.AUTOMATION LEAD Reports: Patient of Shelia Keyes CNP having breathing concerns. History of Asthma and current smoker. Smoking 4 cigarettes. Following pulmonology, Dr. Oakley. Due for follow up. Woke up with chest discomfort with breathing. Refers she is coughing up green/yellow mucus. Had to use breathing treatment this morning due to increase wheezing. Cough started 2 days ago. Taking a DuoNeb, albuterol, Breo Ellipta. No fever, chills, or sore throat. Past medical history, appointments, medications, allergies reviewed 09/17/2022 Previous Medical History PAST MEDICAL HISTORY Diagnosis Date Asthma OMARI (generalized anxiety disorder) PTSD (post-traumatic stress disorder) Previous Surgical History PAST SURGICAL HISTORY Procedure Laterality Date D AND C LIG/TRNSXJ FLP TUBE ABDL/VAG APPR UNI/BI Family History FAMILY HISTORY Problem Relation Age of Onset Neuropathy Mother Dementia Mother Fibromyalgia Mother other (Murdered) Father other (suicide) Child Patient Allergies ALLERGIES Allergen Reactions Augmentin [Amoxicil* GI Upset vomit No Latex Allergy [O* Current Medications Current Outpatient Medications on File Prior to Visit Medication Sig ipratropium-albuterol (DUONEB) 0.5 mg-3 mg(2.5 mg base)/3 mL nebu Inhale 3 mL as instructed every 6 hours as needed. guaiFENesin (MUCINEX) 600 mg 12 hr tablet Take 1-2 tablets by mouth twice daily as needed for cold/allergy symptoms. predniSONE (DELTASONE) 20 mg tablet Take 2 tablets by mouth once daily. cyclobenzaprine (FLEXERIL) 10 mg tablet Take 1 tablet by mouth three times daily as needed for muscle spasm. albuterol HFA (VENTOLIN HFA) 90 mcg/actuation inhaler Inhale 2 Puffs as instructed every 4 hours as needed for wheezing/shortness of breath. fluticasone-vilanterol (BREO ELLIPTA) 200-25 mcg/dose inhaler Inhale 1 Inhalation as instructed once daily. nicotine (NICODERM) 7 mg/24 hr Apply 1 Patch as directed every 24 hours. Start after 2 weeks of 14 mg dose. Do not smoke with patch on. No current facility-administered medications on file prior to visit. Social History Social History Tobacco Use Smoking status: Every Day Packs/day: 1.50 Years: 20.00 Pack years: 30.00 Types: Cigarettes Smokeless tobacco: Never Tobacco comments: down to 1/2 PPD Vaping Use Vaping Use: Never used Substance Use Topics Alcohol use: No Drug use: Never Review of Symptoms GENERAL: No malaise or fatigue. No fevers. HEENT: Negative for headaches No eye discharge or redness No earaches No sore throat Nose POS/NEG for congestion and nasal discharge NECK: Negative for pain or swelling. No lumps RESPIRATORY: + Cough/Wheezing CARDIOVASCULAR: Negative for chest pain GI: No nausea, vomiting, or diarrhea MUSCULOSKELETAL: Negative for bodyaches SKIN: Negative for rash or itching Neuro: No lightheadedness or dizziness EXAM: LMP 04/02/2022 (Approximate) Limited exam as visit was completed over the virtual platform. Virtual visit completed using video, limited exam completed. Patient sounds or appears ill: Yes General Appearance: Well appearing, alert, in no acute distress, well-hydrated, well nourished. Skin: Skin color normal Head: Normocephalic. No facial swelling or redness. EENT: Eyes nonreddened. No discharge. External ears nonreddened and no swelling. Neck: No mass or lesions. No swelling. FROM Patient is not able to speak in complete sentences: N/A Patient has labored breathing: No. Patient is audibly coughing: No audible expiratory wheezing noted Psych: Attitude - cooperative, easily engaged in conversation Affect - Euthymic, normal mood Mental status: Alert. Speech is clear and fluent with good repetition, comprehension Appearance - Normal hygiene and grooming appropriate Coordination: No abnormal or extraneous movements. Gait/Stance: Posture is normal. Health Maintenance List HEPATITIS B(1 of 3 - 3-dose series) Never done COVID-19 VACCINE(1) Never done HEPATITIS C SCREENING Never done DEPRESSION ASSESSMENT Never done INFLUENZA(1) due on 06/03/2022 PNEUMOCOCCAL(2 - PCV) due on 09/30/2022 ANNUAL PCP TEAM CHRONIC DISEASE VISIT due on 08/02/2023 MAMMOGRAM due on (more content not included)... [facility] 09-17-2022 Instructions Cesar Méndez APRN.CNP - 09/17/2022 10:37 AM EST Start Z-Kenny take with food. Start prednisone burst, 40 mg daily. Continue with asthma medication as prescribed. Schedule follow-up appointment with inspector clip on sunglasses. Red flag symptoms such as difficulty breathing go to ER. Continue to reduce cigarette use. Follow-up as needed. documented in this encounter [facility] 09-17-2022 History of Present illness Narrative Chief Complaint Patient presents with: Cough: Asthma This Team Access Model encounter involved medical decision making outside of a scheduled office visit. Patient was offered a virtual/telemedicine appointment in lieu of an office visit due to recommendations to reduce patient exposure to COVID-19. Video was used for evaluation of this patient. Patient agrees to the visit: Yes Patient Location: [facility] Naya Kaur is a 42 year old female who is contacted today for a virtual visit This is an established patient of Dr. Shelia Keyes APRN.AUTOMATION LEAD Reports: Patient of Shelia Keyes AUTOMATION LEAD having breathing concerns. History of Asthma and current smoker. Smoking 4 cigarettes. Following pulmonology, Dr. Oakley. Due for follow up. Woke up with chest discomfort with breathing. Refers she is coughing up green/yellow mucus. Had to use breathing treatment this morning due to increase wheezing. Cough started 2 days ago. Taking a DuoNeb, albuterol, Breo Ellipta. No fever, chills, or sore throat. Past medical history, appointments, medications, allergies reviewed 09/17/2022 Previous Medical History PAST MEDICAL HISTORY Diagnosis Date Asthma OMARI (generalized anxiety disorder) PTSD (post-traumatic stress disorder) Previous Surgical History PAST SURGICAL HISTORY Procedure Laterality Date D AND C LIG/TRNSXJ FLP TUBE ABDL/VAG APPR UNI/BI Family History FAMILY HISTORY Problem Relation Age of Onset Neuropathy Mother Dementia Mother Fibromyalgia Mother other (Murdered) Father other (suicide) Child Patient Allergies ALLERGIES Allergen Reactions Augmentin [Amoxicil* GI Upset vomit No Latex Allergy [O* Current Medications Current Outpatient Medications on File Prior to Visit Medication Sig ipratropium-albuterol (DUONEB) 0.5 mg-3 mg(2.5 mg base)/3 mL nebu Inhale 3 mL as instructed every 6 hours as needed. guaiFENesin (MUCINEX) 600 mg 12 hr tablet Take 1-2 tablets by mouth twice daily as needed for cold/allergy symptoms. predniSONE (DELTASONE) 20 mg tablet Take 2 tablets by mouth once daily. cyclobenzaprine (FLEXERIL) 10 mg tablet Take 1 tablet by mouth three times daily as needed for muscle spasm. albuterol HFA (VENTOLIN HFA) 90 mcg/actuation inhaler Inhale 2 Puffs as instructed every 4 hours as needed for wheezing/shortness of breath. fluticasone-vilanterol (BREO ELLIPTA) 200-25 mcg/dose inhaler Inhale 1 Inhalation as instructed once daily. nicotine (NICODERM) 7 mg/24 hr Apply 1 Patch as directed every 24 hours. Start after 2 weeks of 14 mg dose. Do not smoke with patch on. No current facility-administered medications on file prior to visit. Social History Social History Tobacco Use Smoking status: Every Day Packs/day: 1.50 Years: 20.00 Pack years: 30.00 Types: Cigarettes Smokeless tobacco: Never Tobacco comments: down to 1/2 PPD Vaping Use Vaping Use: Never used Substance Use Topics Alcohol use: No Drug use: Never Review of Symptoms GENERAL: No malaise or fatigue. No fevers. HEENT: Negative for headaches No eye discharge or redness No earaches No sore throat Nose POS/NEG for congestion and nasal discharge NECK: Negative for pain or swelling. No lumps RESPIRATORY: + Cough/Wheezing CARDIOVASCULAR: Negative for chest pain GI: No nausea, vomiting, or diarrhea MUSCULOSKELETAL: Negative for bodyaches SKIN: Negative for rash or itching Neuro: No lightheadedness or dizziness EXAM: LMP 04/02/2022 (Approximate) Limited exam as visit was completed over the virtual platform. Virtual visit completed using video, limited exam completed. Patient sounds or appears ill: Yes General Appearance: Well appearing, alert, in no acute distress, well-hydrated, well nourished. Skin: Skin color normal Head: Normocephalic. No facial swelling or redness. EENT: Eyes nonreddened. No discharge. External ears nonreddened and no swelling. Neck: No mass or lesions. No swelling. FROM Patient is not able to speak in complete sentences: N/A Patient has labored breathing: No. Patient is audibly coughing: No audible expiratory wheezing noted Psych: Attitude - cooperative, easily engaged in conversation Affect - Euthymic, normal mood Mental status: Alert. Speech is clear and fluent with good repetition, comprehension Appearance - Normal hygiene and grooming appropriate Coordination: No abnormal or extraneous movements. Gait/Stance: Posture is normal. Health Maintenance List HEPATITIS B(1 of 3 - 3-dose series) Never done COVID-19 VACCINE(1) Never done HEPATITIS C SCREENING Never done DEPRESSION ASSESSMENT Never done INFLUENZA(1) due on 06/03/2022 PNEUMOCOCCAL(2 - PCV) due on 09/30/2022 ANNUAL PCP TEAM CHRONIC DISEASE VISIT due on 08/02/2023 MAMMOGRAM due on 09/13/2023 PAP TESTING due on 12/30/2026 HPV TESTING due on 12/30/2026 DTAP,TDAP,TD(2 - Td or Tdap) due on 08/18/2030 SPIROMETRY Completed HIV SCREENING Completed Data reviewed Last 5 Encounter BP Readings: Date: BP: 2022 114/80 06/14/2022 120/82 04/16/2022 122/90 12/30/2021 118/80 10/15/2021 122/76 BMI Readings from Last 5 Encounters: 12/30/21 : 27.66 kg/m 10/15/21 : 26.52 kg/m 10/05/21 : 26.52 kg/m 09/30/21 : 27.60 kg/m 05/19/21 : 27.53 kg/m Last 5 Encounter Wt Readings: Date: Wt: 12/30/2021 78.9 kg (174 lb) 10/15/2021 75.8 kg (167 lb) 10/05/2021 75.8 kg (167 lb) 09/30/2021 78.8 kg (173 lb 12.8 oz) 05/19/2021 76.2 kg (168 lb) Medication and allergy list reviewed, reconciled and updated 09/17/2022 ASSESSMENT/PLAN: 1. Moderate persistent asthma with (acute) exacerbation - ICD9: 493.92, ICD10: J45.41 (primary diagnosis) Mild persistent Asthma acute excacerbation no respiratory distress - Avoidance of triggers recommended - Start Prednisone burst, 40 mg daily for 5 days. - Schedule follow up appointment with inspector clip on sunglasses. - PREDNISONE 20 MG TABLET 2. Acute bronchitis, unspecified organism - ICD9: 466.0, ICD10: J20.9 - Start Zpack - AZITHROMYCIN 250 MG TABLET 3. Exacerbation of asthma, unspecified asthma severity, unspecified whether persistent - ICD9: 493.92, ICD10: J45.901 - Refill provided. - IPRATROPIUM 0.5 MG-ALBUTEROL 3 MG (2.5 MG BASE)/3 ML NEBULIZATION SOLN Follow-up as needed or sooner if symptoms get worse or do not improve. Discussed treatment plan and patient voices understanding. Patient's questions answered appropriately. Medications and potential side effects were discussed and patient voices understanding. Cesar Méndez APRN.AUTOMATION LEAD Total appointment time on virtual with patient = 11-20 minutes This note was partially generated using Dragon voice recognition system. Note was reviewed for accuracy. There may be minor misspellings or grammar miscues with [employer] voice recognition. documented in this encounter [facility] 09-14-2022 Miscellaneous Notes September 14, 2022 PID: [id number] Naya Tothham [address] [place], [place] [address] Dear Ms. Kaur, Your recent breast imaging exam on 09/13/2022 showed a possible finding that requires additional imaging studies for a complete evaluation. Most such findings are probably benign (not cancer). Your mammogram demonstrates that you have dense breast tissue, which could hide abnormalities. Dense breast tissue, in and of itself, is a relatively common condition. Therefore, this information is not provided to cause undue concern; rather, it is to ra ise your awareness and promote discussion with your health care provider regarding the presence of dense breast tissue in addition to other risk factors. If you have a healthcare provider who ordered/prescribed your screening mammogram: Please call [phone] or [phone]: [phone] to schedule an appointment for your additional imaging (if you have not already done so). If you DO NOT have a healthcare provider (ie you did not have an order/prescription for your screening mammogram): Please call to schedule an appointment for your additional imaging (if you have not already done so). You must have an order/prescription from your physician when calling to schedule your appointment. If your order/prescription is not electronic, you must bring the hard copy with you on the day of your exam to avoid delays. Your imaging studies and reports are kept on file at [facility] as part of your permanent medical record, and are available for your continuing care. Thank you for allowing us to help in meeting your health care needs. Sincerely, Dr. Abdi Interpreting Radiologist [facility] (Additional imaging) documented in this encounter [facility] 09-13-2022 Note HNO ID: [id number] Author: Arlen Andrews, RT(R) Service: ? Author Type: Technologist Type: Progress Notes Filed: 09/13/2022 2:30 PM Note Text: Radiology Service Progress Note PATIENT NAME: Naya aKur DATE OF SERVICE: September 13, 2022 TIME: 2:30 PM PATIENT IDENTITY VERIFICATION COMPLETED USING TWO (2) IDENTIFIERS: Name and Date of confirmed by patient verbally. FALL SCREENING: Has the patient had 2 falls in the last year or 1 fall with injury or currently using an Ambulatory Assistive Device (Walker, Cane, Wheelchair, Crutches, etc.)? No PATIENT GENDER DATA: Female. status: : No status: NO. PATIENT RELEVANT IMPLANT DATA REVIEWED: Not Applicable RADIOLOGY DEPARTMENT: Mammography PERIPHERAL IV DATA: Not applicable SIGNED BY: RT Christopher(R) September 13, 2022 2:30 PM [facility] 09-13-2022 History of Present illness Narrative Radiology Service Progress Note PATIENT NAME: Naya Kaur DATE OF SERVICE: September 13, 2022 TIME: 2:30 PM PATIENT IDENTITY VERIFICATION COMPLETED USING TWO (2) IDENTIFIERS: Name and Date of confirmed by patient verbally. FALL SCREENING: Has the patient had 2 falls in the last year or 1 fall with injury or currently using an Ambulatory Assistive Device (Walker, Cane, Wheelchair, Crutches, etc.)? No PATIENT GENDER DATA: Female. status: : No status: NO. PATIENT RELEVANT IMPLANT DATA REVIEWED: Not Applicable RADIOLOGY DEPARTMENT: Mammography PERIPHERAL IV DATA: Not applicable SIGNED BY: RT Christopher(R) September 13, 2022 2:30 PM documented in this encounter [facility] 08-02-2022 History of Present illness Narrative Chief Complaint Patient presents with: Telemedicine Patient was offered a virtual/telemedicine appointment in lieu of an office visit due to recommendations to reduce patient exposure to COVID-19. Video was used for evaluation of this patient. Patient is aware of limitations of performing the visit without a face to face visit in the office setting and agrees. Patient agrees to the visit: Yes Patient Location: [facility] Naya Kaur is a 42 year old female who is contacted today for a virtual visit This is an established patient of Shelia Keyes APRN.AUTOMATION LEAD Reports: Pt presents today with complaint of bronchitis. Refers that she had cough yesterday that wouldn't go away. Refers this morning, nasal congestion. Feels like a brick on the chest. Refers that a day a couple of weeks ago, lost her voice for 3-4 days, but that never really progressed to anything else and improved. Past medical history, appointments, medications, allergies reviewed 08/02/2022 Previous Medical History PAST MEDICAL HISTORY Diagnosis Date Asthma OMARI (generalized anxiety disorder) PTSD (post-traumatic stress disorder) Previous Surgical History PAST SURGICAL HISTORY Procedure Laterality Date D AND C LIG/TRNSXJ FLP TUBE ABDL/VAG APPR UNI/BI Family History FAMILY HISTORY Problem Relation Age of Onset Neuropathy Mother Dementia Mother Fibromyalgia Mother other (Murdered) Father other (suicide) Child Patient Allergies ALLERGIES Allergen Reactions Augmentin [Amoxicil* GI Upset vomit No Latex Allergy [O* Current Medications Current Outpatient Medications on File Prior to Visit Medication Sig cyclobenzaprine (FLEXERIL) 10 mg tablet Take 1 tablet by mouth three times daily as needed for muscle spasm. albuterol HFA (VENTOLIN HFA) 90 mcg/actuation inhaler Inhale 2 Puffs as instructed every 4 hours as needed for wheezing/shortness of breath. fluticasone-vilanterol (BREO ELLIPTA) 200-25 mcg/dose inhaler Inhale 1 Inhalation as instructed once daily. ipratropium-albuterol (DUONEB) 0.5 mg-3 mg(2.5 mg base)/3 mL nebu Inhale 3 mL as instructed every 6 hours as needed. guaiFENesin (MUCINEX) 600 mg 12 hr tablet Take 1-2 tablets by mouth twice daily as needed for cold/allergy symptoms. nicotine (NICODERM) 7 mg/24 hr Apply 1 Patch as directed every 24 hours. Start after 2 weeks of 14 mg dose. Do not smoke with patch on. No current facility-administered medications on file prior to visit. Social History Social History Tobacco Use Smoking status: Every Day Packs/day: 1.50 Years: 20.00 Pack years: 30.00 Types: Cigarettes Smokeless tobacco: Never Tobacco comments: down to 1/2 PPD Vaping Use Vaping Use: Never used Substance Use Topics Alcohol use: No Drug use: Never EXAM: LMP 04/02/2022 (Approximate) Limited exam as visit was completed over the virtual platform. Virtual visit completed using video, limited exam completed. Patient sounds or appears ill: Yes, but non-toxic. General Appearance: Well appearing, alert, in no acute distress, well-hydrad, well nourished. Skin: Skin color normal Head: Normocephalic. No facial swelling or redness. EENT: Eyes nonreddened. No discharge. External ears nonreddened and no swelling. Neck: No mass or lesions. No swelling. FROM Patient is unable to speak in complete sentences: No Patient has labored breathing: No. Patient is audibly coughing: Yes Psych: Attitude - cooperative, easily engaged in conversation Affect - Euthymic, normal mood Mental status: Alert. Speech is clear and fluent with good repetition, comprehension Appearance - Normal hygiene and grooming appropriate Coordination: No abnormal or extraneous movements. Gait/Stance: Posture is normal. Health Maintenance List HEPATITIS B(1 of 3 - 3-dose series) Never done COVID-19 VACCINE(1) Never done HEPATITIS C SCREENING Never done DEPRESSION ASSESSMENT Never done INFLUENZA(1) due on 06/03/2022 MAMMOGRAM Never done PNEUMOCOCCAL(2 - PCV) due on 09/30/2022 ANNUAL PCP TEAM CHRONIC DISEASE VISIT due on 06/14/2023 PAP TESTING due on 12/30/2026 HPV TESTING due on 12/30/2026 DTAP,TDAP,TD(2 - Td or Tdap) due on 08/18/2030 SPIROMETRY Completed HIV SCREENING Completed Data reviewed Last 5 Encounter BP Readings: Date: BP: 2022 114/80 06/14/2022 120/82 04/16/2022 122/90 12/30/2021 118/80 10/15/2021 122/76 BMI Readings from Last 5 Encounters: 12/30/21 : 27.66 kg/m 10/15/21 : 26.52 kg/m 10/05/21 : 26.52 kg/m 09/30/21 : 27.60 kg/m 05/19/21 : 27.53 kg/m Last 5 Encounter Wt Readings: Date: Wt: 12/30/2021 78.9 kg (174 lb) 10/15/2021 75.8 kg (167 lb) 10/05/2021 75.8 kg (167 lb) 09/30/2021 78.8 kg (173 lb 12.8 oz) 05/19/2021 76.2 kg (168 lb) Medication and allergy list reviewed, reconciled and updated 08/02/2022 ASSESSMENT/PLAN: 1. Symptoms of upper respiratory infection (URI) - ICD9: 786.09, ICD10: R09.89 (primary diagnosis) Will get covid testing. Prednisone burst. Start mucinex. Notify provider if no better/worsening - COVID WITH FLUA+B, ROUTINE - GUAIFENESIN ER 600 MG TABLET, EXTENDED RELEASE 12 HR 2. Exacerbation of asthma, unspecified asthma severity, unspecified whether persistent - ICD9: 493.92, ICD10: J45.901 Mild intermittent Asthma worse Add flovent. - Continue current meds - Avoidance of triggers recommended - IPRATROPIUM 0.5 MG-ALBUTEROL 3 MG (2.5 MG BASE)/3 ML NEBULIZATION SOLN Discussed treatment plan and patient voices understanding. Patient's questions answered appropriately. Medications and potential side effects were discussed and patient voices understanding. Return to the office as scheduled or as needed for worsening/no improvement. Shelia Keyes APRN.CNP documented in this encounter [facility] 08-02-2022 History of Present illness Narrative This is an [facility] eVisit note for Naya Danielit/Questionnaire reviewed The chief complaint for the visit - Patient presents with: Asthma Recommendations/Treatment plan - referral <5 mins to complete Pattie Zambrano APRN.CNP documented in this encounter [facility] 08-02-2022 History of Present illness Narrative This is an [facility] eVisit note for Naya Kaur eVisit/Questionnaire reviewed The chief complaint for the visit - Patient presents with: Sinus Problem Recommendations/Treatment plan - Referred patient for virtual visit given symptoms present. See My Chart Message to patient. Jose Antonio Tyler APRN.CNP documented in this encounter [facility] 06-30-2022 History of Present illness Narrative Episode Visit Count: 2 Therapist That Will Accept/Oversee The Plan Of Care: Layo Hunter PT Start of Care Date: 06/25/22 Onset Date: 05/29/22 (chronic back pain that worsened in May 2022) Plan of Care Certification Date: 06/25/22 Next Certification Due Date: 08/06/22 Patient Identified by Name and Date of : Yes [facility] PHYSICAL THERAPY TREATMENT NOTE ASSESSMENT: Naya Kaur tolerated the session with fatigue, decreased symptoms, and expected muscle soreness. She demonstrated improvements in pain and exercise tolerance. The patient will continue to benefit from ongoing skilled physical therapy to progress toward set goals. PLAN FOR NEXT VISIT: Review, correct and progress HEP to tolerance. Continue with postural correction and therex for postural stretching and strengthening. Manual therapy prn. SUBJECTIVE: Patient Reason for Visit: Pt reports that overall her pain symptoms are unchanged since evaluation. She reports an increase in postural awareness and that she is working on this. She reports that her work schedule has been very busy and therefore she has only done HEP 2x since evaluation 5 days ago. Pain: Pain Pain Level: 4 Pain Location: Neck (lower neck and upper back) Description: Sharp Frequency: Intermittent (aggravated by work tasks today) Post Treatment Pain Post Treatment Pain Level: Better (2/10 after session compared to 4/10 at start of session.) Post Treatment Pain Location: Neck Post Treatment Pain Description: (less neck pain) Post Treatment Symptoms: After session pt reported a decrease in pain that she attributes to the therex. OBJECTIVE MEASURES WITH LEVEL OF FUNCTION: TREATMENT: Therapeutic Exercise: 1: [employer] StepOne seat #11 x5 minutes (Pt provided an update on her condition and subjective collected.) 2: seated thoracic rotations 2x10 B 3: seated thoracic extension 2x10 4: B UT stretches 3x30 seconds each 5: B levator scapulae stretches 3x30 seconds 6: supine on 3 foot foam roll with roll parallel to spine x2 minutes with goal of pec minor and anterior shoulder stretch 7: supine on foam roll with roll perpendicular to spine rolling up and down 2x10 with focus on upper back. 8: back extension machine 40# 3x10 9: corner pectoral stretch 3x30 seconds 10: seated scapular retraction at Hoist machine 2 plates 3x10 emphasis on posture Skilled Intervention: Patient was educated in proper exercise technique and purpose for exercises. Skilled judgment was provided in selection of appropriate interventions. Correct performance of therapeutic exercises was facilitated with verbal, visual, and tactile cuing. Patient education as noted. Billing Therapeutic Exercise Treatment Minutes: 45 Total Treatment Time Minutes (timed/untimed): 45 Layo Hunter PT documented in this encounter [facility] 06-14-2022 Instructions Shelia Keyes APRN.ANABELL - 06/14/2022 1:38 PM EDT Try the flexeril for the neck pain/headache. Continue the naproxen. Schedule w/ physical therapy. Let us know if no better/worsening. documented in this encounter [facility] 06-14-2022 History of Present illness Narrative This is a 41 year old female who presents today with: Patient presents with: ER F/U: [facility] ER follow up 05/29 HISTORY OF PRESENT ILLNESS: Naya Kaur is a 41 year old female. Patient presents with: ER F/U: [facility] ER follow up 05/29 Pt presents today for ER follow-up. Was at the [facility] ER on 05/29. She was at work. Was trying to open up a filing cabinet. When she pulled on the door of the filing cabinet, the printer that was on top of the cabinet fell off of the cabinet striking her on the back of the head. Per the ER notes, she had a gradual onset of headache, photophobia, phonophobia, pain mostly in the left lateral neck, and right low back. She denied any focal neurological symptoms. No vomiting. No confusion. Refers physical assessment completed at the ER. Dx w/ mild concussion, strain in the neck and lower back. Refers that she continues to get headaches related to the pain in the neck. She denies any loss of consciousness. She describes continued pain at the C7 prominence. She also reports ongoing headaches. No n/t of upper extremities. Refers that she is taking naproxen for pain. She takes twice daily. PAST MEDICAL HISTORY: PAST MEDICAL HISTORY Diagnosis Date Asthma OMARI (generalized anxiety disorder) PTSD (post-traumatic stress disorder) PAST SURGICAL HISTORY Procedure Laterality Date D AND C LIG/TRNSXJ FLP TUBE ABDL/VAG APPR UNI/BI ALLERGIES Augmentin [Amoxicillin-Pot Clavulanate] and No Latex Allergy [Other] MEDICATIONS Current Outpatient Medications Medication Sig albuterol HFA (VENTOLIN HFA) 90 mcg/actuation inhaler Inhale 2 Puffs as instructed every 4 hours as needed for wheezing/shortness of breath. fluticasone-vilanterol (BREO ELLIPTA) 200-25 mcg/dose inhaler Inhale 1 Inhalation as instructed once daily. ipratropium-albuterol (DUONEB) 0.5 mg-3 mg(2.5 mg base)/3 mL nebu Inhale 3 mL as instructed every 6 hours as needed. guaiFENesin (MUCINEX) 600 mg 12 hr tablet Take 1-2 tablets by mouth twice daily as needed for cold/allergy symptoms. nicotine (NICODERM) 7 mg/24 hr Apply 1 Patch as directed every 24 hours. Start after 2 weeks of 14 mg dose. Do not smoke with patch on. No current facility-administered medications for this visit. FAMILY HISTORY Problem Relation Age of Onset Neuropathy Mother Dementia Mother Fibromyalgia Mother other (Murdered) Father other (suicide) Child Social History Tobacco Use Smoking status: Every Day Packs/day: 1.50 Years: 20.00 Pack years: 30.00 Types: Cigarettes Smokeless tobacco: Never Tobacco comments: down to 1/2 PPD Vaping Use Vaping Use: Never used Substance Use Topics Alcohol use: No Drug use: Never EXAM: BP 120/82 Pulse 65 Resp 18 LMP 04/02/2022 (Approximate) SpO2 98% PHYSICAL EXAM: General Appearance: Well appearing, alert, in no acute distress, well-hydrated, well nourished.. Skin: Skin color, texture, turgor normal, no suspicious rashes or lesions. Head: Normocephalic, no masses, lesions, tenderness or abnormalities. Eyes: Anicteric sclera. Pupils are equally round and reactive to light. Extraocular movements are intact. Ears: External ears normal, canals clear. Normal TMs bilaterally. Oropharynx: Lips, mucosa, and tongue normal, teeth and gums normal, oropharynx normal. Neck: Supple, no adenopathy; thyroid symmetric, normal size, no bruits. Lungs: Lungs clear to auscultation. No wheezing, rhonchi, rales.. Heart: RRR without murmur, gallop, or rubs. No ectopy. Back: negative SLR. Abdomen: Abdomen soft, non-tender. Bowel sounds normal. No masses, organomegaly. Extremities: No deformities, edema, skin discoloration, clubbing or cyanosis. Good capillary refill. = strength of extremities. Neurologic: Gait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
[2023-10-08 17:00] VITALS: BP 108/80; O2SAT 99
== END 2023-10-08 17:14 | disposition home or self-care (01) ==
PROVIDERS: Emergency Provider Emergency Medicine; PCP Family Medicine; Visit Provider Emergency Medicine
DX: R06.00 Dyspnea, unspecified (principal); J45.909 Unspecified asthma, uncomplicated; F17.210 Nicotine dependence, cigarettes, uncomplicated; Z79.51 Long term (current) use of inhaled steroids
CPT/HCPCS: 71045; 93005; 94640; 99283